=== PATIENT | female | born 1965 | race Caucasian/White ===

== ENCOUNTER 2016-11-10 18:32 | Emergency (ER) | payer MEDICARE, OTHER ==
[2016-11-10 18:49] VITALS: RESP 16
[2016-11-10] MEDS ORDERED: HYDROmorphone 1 MG/ML 1 ML SYRINGE IM STA (21:12)
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
[2016-11-10 21:31] VITALS: BP 134/82; PULSE 58; TEMP 97.4
== END 2016-11-10 21:35 | disposition home or self-care (01) ==
LOC: EC 18:32
DX: G44.329 Chronic post-traumatic headache, not intractable (principal); G40.909 Epilepsy, unspecified, not intractable, without status epilepticus; K21.9 Gastro-esophageal reflux disease without esophagitis; K58.9 Irritable bowel syndrome, unspecified; F41.9 Anxiety disorder, unspecified; F32.9 Major depressive disorder, single episode, unspecified; F17.200 Nicotine dependence, unspecified, uncomplicated; Z79.899 Other long term (current) drug therapy; Z79.891 Long term (current) use of opiate analgesic
CPT/HCPCS: 96372 ×2; 99283 ×2; J1170

== ENCOUNTER → 2017-07-23 | Outpatient (CLI) | payer MEDICARE, OTHER ==
--- NOTE | 2017-07-27 09:56 | MM ---
Reason for exam: screening (asymptomatic). Last mammogram was performed 2 years and 2 months ago. Physical Findings: A clinical breast exam by your physician is recommended on an annual basis and results should be correlated with mammographic findings. MG Screening Mammo w CAD Bilateral CC and MLO view(s) were taken. Prior study comparison: May 22, 2015, bilateral MG diagnostic mammo w CAD ROSALIO. November 01, 2014, left breast MG diagnostic mammo LT w CAD. The breast tissue is heterogeneously dense. This may lower the sensitivity of mammography. Finding: There are questionable faint grouped/clustered calcifications in the upper outer quadrant of the right breast. New finding since November 01, 2014. ASSESSMENT: Incomplete: need additional imaging evaluation, BI-RAD 0 RECOMMENDATION: Special view mammogram of the right breast. [facility] will attempt to contact patient to return for supplemental views.
== END | disposition home or self-care (01) ==
LOC: RADMAMWWP 15:44
PROVIDERS: ATTEND Family Medicine
DX: Z12.31 Encounter for screening mammogram for malignant neoplasm of breast (principal)

== ENCOUNTER → 2017-12-14 | Outpatient (CLI) | payer MEDICARE, OTHER ==
--- NOTE | 2017-12-14 15:48 | MR ---
EXAMINATION TYPE: MR cervical spine wo con DATE OF EXAM: 12/14/2017 COMPARISON: Prior MR cervical spine 02/06/2015 HISTORY: headaches, neck pain TECHNIQUE: Multiplanar, multisequence images of the cervical spine were acquired. C2-C3: No evidence for degenerative disc disease. No disc bulge/herniation or protrusion. No Canal stenosis. Foramina are patent bilaterally. C3-C4: There is broad-based posterior disc bulge causing possible contact with the anterior cervical cord. No significant spinal stenosis or foraminal encroachment. C4-C5: Left posterior paracentral disc herniation causes mass effect on the cervical cord, there is m oderate central canal stenosis extending paracentral location on the left, there may be some mild for aminal encroachment due to lateral extension of endplate disc complex. Findings are similar to prior exam. C5-C6: Posterior extension of endplate disc complex is similar to prior exam, there is likely contact ing the anterior cervical or. Mild central canal stenosis, no significant foraminal encroachment. C6-C7: No evidence for degenerative disc disease. No disc bulge/herniation or protrusion. No Canal stenosis. Foramina are patent bilaterally. C7-T1: No evidence for degenerative disc disease. No disc bulge/herniation or protrusion. No Canal stenosis. Foramina are patent bilaterally. Cervical segments are intact. There is normal alignment. Cervical spinal cord is of normal signal. Craniovertebral junction relationships are within normal limits. Question an underlying spinal curv ature. Loss of disc height and signal present at the intervertebral levels especially C3-4, C4-5 and C5-6. Some minimal endplate discogenic marrow signal change, spondylosis present. IMPRESSION: Findings are similar to prior exam. Disc herniation, spinal stenosis greatest at C4-5 mass effect on the cervical cord.
== END | disposition home or self-care (01) ==
LOC: RADMRIMAIN 12:21
PROVIDERS: ATTEND Family Medicine
DX: M48.02 Spinal stenosis, cervical region (principal); M50.21 Other cervical disc displacement, high cervical region
CPT/HCPCS: 72141

== ENCOUNTER → 2018-02-10 | Outpatient (CLI) | payer MEDICARE, OTHER ==
--- NOTE | 2018-02-12 08:48 | MM ---
Reason for exam: follow-up at short interval from prior study. Last mammogram was performed 6 months ago. Physical Findings: Nurse did not find any significant physical abnormalities on exam. MG Diagnostic Mammo RT w CAD CC and MLO view(s) were taken of the right breast. Prior study comparison: August 10, 2017, right breast MG work up mamm w CAD RT. July 23, 2017, bilateral MG screening mammo w CAD. The breast tissue is extremely dense which could obscure a lesion on mammography. Finding: There are indeterminate calcifications in the upper outer quadrant of the right breast. These results were verbally communicated with the patient and result sheet given to the patient on 02/10/18. ASSESSMENT: Suspicious, BI-RAD 4 RECOMMENDATION: Surgical consultation of the right breast. Stereotactic core biopsy of the right breast. (or) Localization and excision of the right breast. Called Dr. Steen's office with mammographic findings and has scheduled an appointment for the patient for03/04/18 at 2:[address] Jade. PRELIMINARY REPORT CALLED AND FAXED TO DR. JADE ON 02/10/18.
== END | disposition home or self-care (01) ==
LOC: RADMAMWWP 12:53
PROVIDERS: ATTEND Family Medicine
DX: R92.8 Other abnormal and inconclusive findings on diagnostic imaging of breast (principal)
CPT/HCPCS: 77065

== ENCOUNTER → 2018-03-04 | Day surgery (SDC) | payer MEDICARE, OTHER ==
[2018-03-04 10:04] VITALS: BP 104/69; PULSE 85; RESP 16; TEMP 98.4; BMI 39.1
--- NOTE | 2018-03-04 12:30 | MM ---
EXAMINATION TYPE: MG discontinued stereo core RT DATE OF EXAM: 03/04/2018 COMPARISON: Mammogram February 10, 2018 and older studies. CLINICAL HISTORY: Abnormal mammogram TECHNIQUE: Canceled Stereotactic guided core biopsy of right breast. FINDINGS: The procedure of stereotactic guided core biopsy was explained to the patient. Benefits, a lternatives, and risks were discussed. An informed consent was then obtained. Case is reviewed prior to procedure. There are vague calcifications upper outer quadrant on backgroun d of dense tissue. No significant change from most recent mammogram. Patient placed on stereotactic table. No suspicious cluster of microcalcifications could be localized to warrant sampling at this time. Patient also compressed to make not candidate for stereotactic arie ded core biopsy. At this point procedure was canceled. Patient was agreeable to cancellation of biopsy and precautionary 6 month follow-up. IMPRESSION: UNSUCCESSFUL CANCELED STEREOTACTIC GUIDED CORE BIOPSY OF AREA OF CONCERN IN THE RIGHT BREAST. BI-RADS 3 PROBABLE BENIGN FINDINGS. RECOMMENDATION: PATIENT WILL BE DUE IN 5 MONTHS TIME FOR BILATERAL BREAST MAMMOGRAM TO BE BACK ON SILAS UAL SCHEDULE. ADVISE DIAGNOSTIC IMAGING AT THAT TIME.
== END ==
LOC: RADMAMWWP 09:50 → EEVIPCON 09:50
PROVIDERS: ATTEND Family Medicine
DX: R92.1 Mammographic calcification found on diagnostic imaging of breast (principal); Z53.8 Procedure and treatment not carried out for other reasons

== ENCOUNTER → 2018-03-11 | Outpatient (CLI) | payer MEDICARE, OTHER ==
[2018-03-11 11:23] VITALS: BP 130/70; PULSE 70; RESP 20; TEMP 97; BMI 16.0
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
== END | disposition home or self-care (01) ==
LOC: EEVIPCON 10:20 → WWCWWP 10:49
PROVIDERS: ATTEND Surgery
DX: R92.8 Other abnormal and inconclusive findings on diagnostic imaging of breast (principal); Z53.9 Procedure and treatment not carried out, unspecified reason

== ENCOUNTER → 2018-08-16 | Outpatient (CLI) | payer MEDICARE, OTHER ==
--- NOTE | 2018-08-16 11:23 | MM ---
Reason for exam: follow-up at short interval from prior study. Last mammogram was performed 6 months ago. History: MG discontinued stereo core RT of the right breast, March 04, 2018. Physical Findings: Nurse did not find any significant physical abnormalities on exam. MG Diagnostic Mammo w CAD ROSALIO Bilateral CC and MLO view(s) were taken. Prior study comparison: February 10, 2018, right breast MG diagnostic mammo RT w CAD. August 10, 2017, right breast MG work up mamm w CAD RT. The breast tissue is heterogeneously dense. This may lower the sensitivity of mammography. No suspicious calcifications are seen. There is no discrete abnormality. No significant new findings when compared with previous films. These results were verbally communicated with the patient and result sheet given to the patient on 08/16/18. ASSESSMENT: Negative, BI-RAD 1 RECOMMENDATION: Routine screening mammogram of both breasts in 1 year.
== END | disposition home or self-care (01) ==
LOC: RADMAMWWP 10:49
PROVIDERS: ATTEND Surgery
DX: R92.8 Other abnormal and inconclusive findings on diagnostic imaging of breast (principal)
CPT/HCPCS: 77066

== ENCOUNTER → 2018-08-26 | Outpatient (CLI) | payer MEDICARE, OTHER ==
[2018-08-26 11:13] VITALS: BP 116/76; PULSE 69; RESP 16; TEMP 97.4; BMI 33.8
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
== END | disposition home or self-care (01) ==
LOC: WWCWWP 10:44
PROVIDERS: ATTEND Surgery
DX: Z53.9 Procedure and treatment not carried out, unspecified reason (principal)

== ENCOUNTER 2018-09-28 06:52 | Day surgery (SDC) | payer MEDICARE, OTHER ==
[2018-09-27 13:42] VITALS: BMI 31.1
[~2018-09-28 06:52] MED LIST: DEXAMETHASONE SOD PHOSPHATE 10 MG/ML 1 ML VIAL IV ONE; HEPARIN SODIUM,PORCINE 5,000 UNIT/ML 1 ML VIAL SQ ONE; HYDROmorphone 1 MG/ML 1 ML SYRINGE IVP PRN; LIDOCAINE 1% 20 ML VIAL (10MG/ML) FOR IV START INTRADERMA PRN; MIDAZOLAM 2 MG/2 ML VIAL IV PRN; ONDANSETRON 4 MG/2 ML VIAL IVP ONE; Pre Op ABX Message 1 EACH MISC MISCELLANE ONE; fentaNYL (PF) 50 MCG/ML 2 ML AMP IV PRN
[2018-09-28] MEDS: LACTATED RINGERS 1,000 ML IV SCH ×2 (07:26→09:28)
[2018-09-28] MEDS ORDERED: ALPRAZolam 0.5 MG TAB PO ONE (07:51)
[2018-09-28] MEDS ORDERED: LIDOCAINE 1% INJ 10MG/ML (20 ML MDV) SQ ONE ×2 (09:21)
[2018-09-28] MEDS ORDERED: LIDOCAINE 1%-EPI 1:100,000 20 ML VIAL SQ ONE (09:29)
[2018-09-28] MEDS ORDERED: MIDAZOLAM 2 MG/2 ML VIAL ONE (09:30)
[2018-09-28] MEDS ORDERED: SUCCINYLCHOLINE CHLORIDE 100 MG/5 ML SYR IV ONE (09:30)
[2018-09-28] MEDS ORDERED: LIDOCAINE 1% INJ 10MG/ML (20 ML MDV) ONE (09:30)
[2018-09-28] MEDS ORDERED: PROPOFOL 10 MG/ML 20 ML VIAL IV ONE (09:30)
[2018-09-28] MEDS ORDERED: SODIUM BICARB 4% 5 ML VIAL (0.48 MEQ/ML) MISCELLANE ONE (09:31)
[2018-09-28] MEDS ORDERED: HEPARIN SODIUM,PORCINE 5,000 UNIT/ML 1 ML VIAL SQ ONE (09:38)
--- NOTE | 2018-09-28 10:21 | P.OP ---
Date of Procedure: 09/28/18 Preoperative Diagnosis: Mammographic abnormality right breast Postoperative Diagnosis: Same Procedure(s) Performed: Right breast needle localization and excisional biopsy Anesthesia: LANE Surgeon: Larissa Jade Estimated Blood Loss (ml): 2 IV fluids (ml): 400 Pathology: other (Breast tissue) Condition: stable Disposition: same day Indications for Procedure: Radiographic abnormality right breast Operative Findings: Dense breast tissue Description of Procedure: Following needle localization of an area of increased density in the right breast the patient was taken to the operating room. Following induction of general anesthesia the right breast was prepped and draped in a sterile fashion. Circumareolar incision was made and carried down to the shaft of the needle. Wide excision of the area was performed. Hemostasis was attained using electrocautery device. The deep tissues were closed using 3-0 Vicryl suture. The skin was closed using 4-0 Monocryl. The specimen was painted for orientation. The specimen was sent for radiographic confirmation that the area of concern about removed. The patient tolerated the procedure in stable condition. All instrument and sponge counts were correct at the end of the case.
--- NOTE | 2018-09-28 10:23 | P.DS ---
Providers Attending physician: Larissa Jade Primary care physician: Vitaliy Steen Plan - Discharge Summary New Discharge Prescriptions: No Action Omeprazole [PriLOSEC] 20 mg PO BID Docusate [Colace] 100 mg PO HS Loratadine [Claritin] 20 mg PO 1200 levETIRAcetam [Keppra] 1,000 mg PO QAM DULoxetine HCL [Cymbalta] 60 mg PO BID traZODone HCL [Desyrel] 50 mg PO HS Butalb/Acetaminophen/Caffeine [Njvpdl-Kstwhxqr-Ibof 50-325-40] 1 tab PO BID Baclofen 10 mg PO TID ARIPiprazole [Abilify] 5 mg PO QAM oxyCODONE HCL 20 mg PO DAILY@1200 PRN PRN Reason: Breakthrough Pain oxyCODONE HCL [OxyCONTIN] 30 mg PO Q12H Discharge Medication List DULoxetine HCL [Cymbalta] 60 mg PO BID 03/03/14 [History] Docusate [Colace] 100 mg PO HS 03/03/14 [History] Loratadine [Claritin] 20 mg PO 1200 03/03/14 [History] Omeprazole [PriLOSEC] 20 mg PO BID 03/03/14 [History] levETIRAcetam [Keppra] 1,000 mg PO QAM 03/03/14 [History] Butalb/Acetaminophen/Caffeine [Wkrgir-Neokdpgt-Nldi 50-325-40] 1 tab PO BID 06/03 [History] traZODone HCL [Desyrel] 50 mg PO HS 03/26/16 [History] ARIPiprazole [Abilify] 5 mg PO QAM 11/10/16 [History] Baclofen 10 mg PO TID 11/10/16 [History] oxyCODONE HCL 20 mg PO DAILY@1200 PRN 11/10/16 [History] oxyCODONE HCL [OxyCONTIN] 30 mg PO Q12H 11/10/16 [History] Follow up Appointment(s)/Referral(s): Larissa Jade MD [STAFF PHYSICIAN] - 1 Week Activity/Diet/Wound Care/Special Instructions: Patient may shower after 48 hours Discharge Disposition: HOME SELF-CARE
[2018-09-28 10:41] VITALS: TEMP 97.7
[2018-09-28 10:58] VITALS: RESP 18
--- NOTE | 2018-09-28 11:03 | MM ---
EXAMINATION TYPE: MG pre op needle loc RT, MG surgical specimen RT DATE OF EXAM: 09/28/2018 COMPARISON: Mammogram August 16, 2018 and older mammograms. CLINICAL HISTORY: Abnormal mammogram per order. TECHNIQUE: Needle localization with wire placement and surgical excision of area of concern in the ri t breast. FINDINGS: The procedure of needle localization with wire placement and than surgical excision was exp lained to the patient. Benefits, alternatives, and risks were discussed. An informed consent was th en obtained. Case was reviewed with surgeon prior to procedure. Patient has extremely dense tissue with possible f aint calcifications upper outer quadrant, attempted stereotactic biopsy was unsuccessful. Possible fa int calcifications are not significantly changed from 2015 mammogram. Surgeon wishes to proceed with excisional biopsy due to her concern of the upper outer aspect. The shortest pathway for procedure was chosen. Shortest pathway was lateral approach. The overlying skin was prepped and draped in usual sterile fashion. Lidocaine buffered with bicarbonate was used a s anesthetic into the skin and subcutaneous tissue up to the level of area of concern. A 5 cm needle was used. It was placed via a lateral approach under mammographic guidance. Subsequent 90 degrees mammogram show the needle to be in satisfactory position relative to the targeted area. At this poin t, wire was placed and the needle was withdrawn. The wire was fixed to patient's skin. Images were marked for surgeon. The patient tolerated the procedure well without any immediate complication. The patient was kept in the radiology department for short stay after the procedure and then taken to surgery for surgical e xcision. Targeted wire is identified in entirety in specimen mammogram. The patient was kept in hosp ital for short stay after the procedure and then discharged home in stable condition. IMPRESSION: Successful, uncomplicated needle localization with wire placement and surgical excision o f extremely dense tissue upper-outer quadrant with possible faint calcifications in the right breast, full pathology results to follow. Low to intermediate index of suspicion noted at time of procedure.
[2018-09-28 11:24] VITALS: PULSE 80
[2018-09-28 11:47] VITALS: BP 93/62
== END 2018-09-28 12:20 | disposition home or self-care (01) ==
LOC: OR 06:52
PROVIDERS: ATTEND Surgery
DX: R92.1 Mammographic calcification found on diagnostic imaging of breast (principal); N60.11 Diffuse cystic mastopathy of right breast; N60.21 Fibroadenosis of right breast; F17.210 Nicotine dependence, cigarettes, uncomplicated; J45.909 Unspecified asthma, uncomplicated; K21.9 Gastro-esophageal reflux disease without esophagitis; G40.909 Epilepsy, unspecified, not intractable, without status epilepticus; R41.3 Other amnesia; K58.1 Irritable bowel syndrome with constipation; G89.29 Other chronic pain; M54.9 Dorsalgia, unspecified; F41.9 Anxiety disorder, unspecified; F32.9 Major depressive disorder, single episode, unspecified; Z90.710 Acquired absence of both cervix and uterus; Z86.14 Personal history of Methicillin resistant Staphylococcus aureus infection; Z79.891 Long term (current) use of opiate analgesic; Z79.899 Other long term (current) drug therapy
CPT/HCPCS: 77065; 19125; 88307; 76098; 19281; J2250; J1644; J1100; J2405; J2001; J0330; J2704

== ENCOUNTER → 2018-10-07 | Outpatient (CLI) | payer MEDICARE, OTHER ==
[2018-10-07 12:02] VITALS: BP 115/75; PULSE 60; RESP 18; TEMP 98.1; BMI 18.0
--- NOTE | 2018-10-07 12:19 | P.PN ---
Progress Note - Text Progress Note Date: 10/07/18 Patient is a 52-year-old white female status post right breast biopsy. Pathology revealed benign fibrocystic changes including sclerosing adenosis with numerous cluster calcifications. Patient has no complaints at this time. Physical examination: Lungs: Clear Heart: Regular rate and rhythm Incision clean and dry Impression: 1. Fibrocystic breast changes right breast Plan: 1. Repeat right breast mammogram and physician exam in 6 months Cc: Dr. Steen
== END | disposition home or self-care (01) ==
LOC: WWCWWP 11:31
PROVIDERS: ATTEND Surgery
DX: Z53.9 Procedure and treatment not carried out, unspecified reason (principal)

== ENCOUNTER → 2019-05-12 | Outpatient (CLI) | payer MEDICARE, OTHER ==
--- NOTE | 2019-05-12 11:33 | MM ---
Reason for exam: follow-up at short interval from prior study. Last mammogram was performed 9 months ago. History: Benign MG pre op needle loc RT of the right breast, September 28, 2018. MG discontinued stereo core RT of the right breast, March 04, 2018. Physical Findings: Nurse did not find any significant physical abnormalities on exam. MG Diagnostic Mammo RT w CAD CC and MLO view(s) were taken of the right breast. Prior study comparison: August 16, 2018, bilateral MG diagnostic mammo w CAD ROSALIO. February 10, 2018, right breast MG diagnostic mammo RT w CAD. The breast tissue is heterogeneously dense. This may lower the sensitivity of mammography. No suspicious abnormality. Post surgical change on the right. These results were verbally communicated with the patient and result sheet given to the patient on 05/12/19. ASSESSMENT: Benign, BI-RAD 2 RECOMMENDATION: Routine screening mammogram of both breasts in 3 months. Back on schedule for July 2019.
== END | disposition home or self-care (01) ==
LOC: RADMAMWWP 10:47
PROVIDERS: ATTEND Surgery
DX: R92.8 Other abnormal and inconclusive findings on diagnostic imaging of breast (principal)
CPT/HCPCS: 77065

== ENCOUNTER → 2019-05-13 | Outpatient (CLI) | payer MEDICARE, OTHER ==
[2019-05-13 11:16] VITALS: BP 116/76; PULSE 72; RESP 16; TEMP 98.8; BMI 16.7
--- NOTE | 2019-05-13 11:28 | P.PN ---
Subjective Progress Note Date: 05/13/19 Guerline is a 52-year-old white female who had a abnormal mammogram in January 2018. This revealed indeterminate calcifications in the upper quadrant of the right breast. There were considered suspicious BIRADS 4. At that time an attempt at stereo biopsy was made. The lesion was not well identified it was recommended she have repeat mammogram of that side in 5 months. She did have bilateral mammogram in July 2018. Although this was felt to be negative initially upon review with radiology the area of microcalcifications in the right breast persisted. Her breasts are very small and as per the radiologist it was felt that she would not be a good candidate for stereotactic biopsy. It was recommended she undergo needle localization and excisional biopsy. Not reporting any masses or changes in her breasts. She denied any nipple discharge or skin changes of concern. She underwent a needle localization and resection of the area of concern on 09-28-18. This was benign. She does not feel any lumps or masses in her breasts. Her most recent mammogram was of the right breast on . This was a benign BIRADS 2. It is recommended for routine screening of both breast in 3 months. After discussion with the patient she does not wish to repeat her right mammogram in 3 months and will have the left mammogram done in 3 months, and then bilateral mammogram in 1 year. Family History: unknown Past surgical history: Total hysterectomy Past medical history: 1. Closed head injury secondary to trauma many years ago care provider was present 2. Asthma 3. Seizure disorder 4. Nicotine dependence 5. Low back pain Pregnancies 2, 2 children Social history: Smokes half pack per day Alcohol: Negative Drugs: Negative - Constitutional Constitutional: Reports as per HPI - EENT Eyes: denies blurred vision, denies pain Ears: deny: decreased hearing, tinnitus Ears, nose, mouth and throat: Denies headache, Denies sore throat - Breasts Breasts: bilateral: as per HPI - Cardiovascular Cardiovascular: Denies chest pain, Denies shortness of breath - Respiratory Respiratory: Denies cough, Denies 7 - Gastrointestinal Gastrointestinal: Denies abdominal pain, Denies diarrhea, Denies nausea, Denies vomiting, - Genitourinary (Female) Genitourinary: Denies dysuria, Denies hematuria - Menstruation Menstruation: Reports post hysterectomy - Neurological Comment: Status post closed head injury - Hematologic/Lymphatic Comment: none Musculoskeletal: Lower back pain Past Medical History Past Medical History: Asthma, GERD/Reflux, Memory Impairment, Seizure Disorder Additional Past Medical History / Comment(s): HX CLOSED HEAD INJ, IN A COMA years ago pt states; BLOOD PRESSURE RUNS LOW; ; CHRONIC BACK PAIN; POOR BANANCE NOW, pt states she last seizure was months ago History of Any Multi-Drug Resistant Organisms: MRSA Date of last positivie culture/infection: 06/15/2007 MDRO Source:: Left Axilla Past Surgical History: Hysterectomy Additional Past Surgical History / Comment(s): PAIN PROC, LAST 02/08/14 Past Anesthesia/Blood Transfusion Reactions: No Reported Reaction Past Psychological History: Anxiety, Depression Smoking Status: Current every day smoker Past Alcohol Use History: None Reported Past Drug Use History: Marijuana Additional Drug Use History / Comment(s): pt states she hasnt used marijuana in months. Objective - Vital Signs Vital signs: Intake & Output 05/12/19 05/13/19 05/13/19 18:59 06:59 18:59 Weight 48.534 kg - Exam BMI 16.8 - Constitutional General appearance: Present: thin - EENT Eyes: Present: EOMI ENT: Present: hearing grossly normal - Neck Neck: Present: normal ROM - Respiratory Details: Expiratory wheezes bilaterally at the bases - Cardiovascular Rhythm: regular Heart sounds: normal: S1, S2 - Gastrointestinal General gastrointestinal: Present: soft - Integumentary Integumentary: Present: normal turgor - Musculoskeletal Musculoskeletal: Present: gait normal - Psychiatric Psychiatric: Present: A&O x's 3, appropriate affect, intact judgment & insight - Additional findings Additional findings: Breast examination: Right breast: 100 scar from prior biopsy no dominant masses or nodules of concern, fibrocystic changes Right axilla: No adenopathy of concern left breast: Multiple positional exam no dominant masses or nodules of concern Left axilla: No adenopathy of concern Assessment and Plan Assessment: Impression: 1. [place] [id number] benign BIRADS 2 of the right breast 2. Fibrocystic breast changes 3. Closed head injury 4. Patient to the left breast mammogram in 3 months 5. Low back pain 6. Asthma 7. Seizure disorder Plan: 1. Left breast mammogram July with physician exam at that time 2. Will have repeat bilateral mammogram that 1 year 3. Medical management of medical conditions Cc: Dr. Steen
== END | disposition home or self-care (01) ==
LOC: WWCWWP 10:47
PROVIDERS: ATTEND Surgery
DX: Z53.9 Procedure and treatment not carried out, unspecified reason (principal)

== ENCOUNTER 2019-06-07 20:40 | Emergency (ER) | payer MEDICARE, OTHER ==
[2019-06-07 20:48] VITALS: PULSE 95; RESP 16; TEMP 98
--- NOTE | 2019-06-07 22:02 | CT ---
EXAMINATION TYPE: CT brain cspine wo con DATE OF EXAM: 06/07/2019 COMPARISON: 01/17/2015 CT HISTORY: Fall, ETOH. CT DLP: 1160 mGycm Automated exposure control for dose reduction was used. TECHNIQUE: CT scan of the head and cervical spine are performed without contrast. FINDINGS: HEAD CT: The previously seen left temporoparietal occipital encephalomalacia pattern is similar when compared to the 01/17/2015 CT. There is no gall fracture or intracranial hemorrhage, mass, or mass eff ect. No definite new attenuation defect. The extra-axial compartment is similar when compared to the prior study. The globes are intact and the visualized sinuses are clear. INCIDENTALS: 1) It is noted that the left maxillary sinus is approximately 85% opacified, which can correlate with a clinical diagnosis of left maxillary sinusitis; this left maxillary sinus was clear on the prior s tudy. 2) Also, it is noted that the left external auditory canal has excessive cerumen within, but the rig ht external auditory canal is clear. CERVICAL SPINE CT: The cervical spine is visualized in its entirety from C1 through upper thoracic le vels and demonstrates satisfactory alignment without evidence of acute fracture or dislocation. Prev ertebral soft tissue appears within normal limits. The C1-C2 articulation is unremarkable. IMPRESSION: 1. There is no acute fracture or dislocation evident in the cervical spine. 2. No acute intracranial hemorrhage, mass effect, or midline shift is seen.
--- NOTE | 2019-06-07 22:21 | ED ---
Fall HPI - General Chief Complaint: Fall Stated Complaint: Fall, ETOH Time Seen by Provider: 06/07/19 20:56 Source: patient, EMS Mode of arrival: EMS - History of Present Illness Initial Comments: 53-year-old female patient presents to the emergency department today for evaluation after experiencing a fall. Patient states she is walking up a wheelchair ramp when she fell backwards. Patient is unsure she had her head. She is reporting some neck pain. States she does have chronic neck pain and this feels similar but she is unsure she injured it or not. Denies radiation of the pain down her arms. Denies any numbness or tingling to her arms or fingers. She denies any back pain, hip pain, or leg pain. Denies any chest pain or trouble breathing. Denies any loss of bowel or bladder control. She does admit to drinking alcohol and smoking marijuana tonight. Patient denies any headache, dizziness, weakness, abdominal pain, nausea, vomiting, or difficulties with bowel movements or urination. - Related Data Home Medications Medication Instructions Recorded Confirmed DULoxetine HCL [Cymbalta] 60 mg PO BID 03/03/14 06/07/19 Docusate [Colace] 100 mg PO HS 03/03/14 06/07/19 Loratadine [Claritin] 10 mg PO DAILY 03/03/14 06/07/19 levETIRAcetam [Keppra] 1,000 mg PO QAM 03/03/14 06/07/19 Butalb/Acetaminophen/Caffeine 1 tab PO BID 03/26/16 06/07/19 [[id number]-[id number]-Mywe 50-325-40] traZODone HCL [Desyrel] 100 mg PO HS 03/26/16 06/07/19 ARIPiprazole [Abilify] 5 mg PO QAM 11/10/16 06/07/19 Baclofen 10 mg PO HS 11/10/16 06/07/19 oxyCODONE HCL [OxyCONTIN] 30 mg PO Q12H 11/10/16 06/07/19 oxyCODONE HCL [oxyCODONE HCL (IR)] 20 mg PO DAILY@1200 PRN 11/10/16 06/07/19 Clotrimazole Cream [Lotrimin Cream] 1 applic TOPICAL DAILY 06/07/19 06/07/19 Pantoprazole [Protonix] 40 mg PO DAILY 06/07/19 06/07/19 busPIRone HCl [Buspar] 5 mg PO TID 06/07/19 06/07/19 rOPINIRole HCL [Requip] 0.5 mg PO DAILY 06/07/19 06/07/19 Allergies Allergy/AdvReac Type Severity Reaction Status Date / Time No Known Allergies Allergy Verified 06/07/19 20:56 Review of Systems ROS Statement: Those systems with pertinent positive or pertinent negative responses have been documented in the HPI. ROS Other: All systems not noted in ROS Statement are negative. Past Medical History Past Medical History: Asthma, GERD/Reflux, Memory Impairment, Seizure Disorder Additional Past Medical History / Comment(s): HX CLOSED HEAD INJ, IN A COMA years ago pt states; BLOOD PRESSURE RUNS LOW; IBS/CONSTIPATION; CHRONIC BACK PAIN; POOR BALANCE History of Any Multi-Drug Resistant Organisms: MRSA Date of last positivie culture/infection: 06/15/2007 MDRO Source:: Left Axilla Past Surgical History: Hysterectomy Additional Past Surgical History / Comment(s): PAIN PROCs Past Anesthesia/Blood Transfusion Reactions: No Reported Reaction Additional Past Anesthesia/Blood Transfusion Reaction / Comment(s): no hx blood transfusion Past Psychological History: Anxiety, Depression Smoking Status: Current every day smoker Past Alcohol Use History: Daily Past Drug Use History: Marijuana - Past Family History Mother Family Medical History: Cancer General Exam Limitations: altered mental status General appearance: alert, in no apparent distress, appears intoxicated, other (This is a well-developed, well-nourished, intoxicated adult female patient in no acute distress. Vital signs upon presentation are temperature 98.0F, pulse 95, respirations 16, blood pressure 101/70, pulse ox 100% on room air.) Head exam: Present: atraumatic, normocephalic, normal inspection Eye exam: Present: normal appearance, PERRL, EOMI. Absent: scleral icterus, conjunctival injection, periorbital swelling ENT exam: Present: normal exam, normal oropharynx, mucous membranes moist, TM's normal bilaterally (No hemotympanum) Neck exam: Present: normal inspection, tenderness (Posterior cervical tender ness). Absent: meningismus, full ROM (C-collar in place), lymphadenopathy Respiratory exam: Present: normal lung sounds bilaterally. Absent: respiratory distress, wheezes, rales, rhonchi, stridor Cardiovascular Exam: Present: regular rate, normal rhythm, normal heart sounds. Absent: systolic murmur, diastolic murmur, rubs, gallop, clicks GI/Abdominal exam: Present: soft, normal bowel sounds. Absent: distended, tenderness, guarding, rebound, rigid Extremities exam: Present: normal inspection, full ROM, normal capillary refill, other (Skin to the extremities is pink, warm, dry. Cap refills less than 3 seconds. Radial pulses 2+ and equal bilaterally. Pedal posttibial pulses 2+ and equal bilaterally.). Absent: tenderness, pedal edema, joint swelling, calf tenderness Back exam: Present: normal inspection, other (Nontender, no step-off, no deformity to firm midline palpation of the thoracic and lumbar vertebrae. Full range of motion without pain or limitation.). Absent: vertebral tenderness Neurological exam: Present: alert, oriented X3, CN II-XII intact, other (Strength in all 4 extremities is 5/5.) Psychiatric exam: Present: normal affect, normal mood Skin exam: Present: warm, dry, intact, normal color. Absent: rash Course Vital Signs 06/07/19 06/07/19 20:42 22:57 Temperature 98.0 F 98.0 F Pulse Rate 95 95 Respiratory 16 16 Rate Blood Pressure 101/70 112/71 O2 Sat by Pulse 100 100 Oximetry Medical Decision Making - Medical Decision Making 53-year-old female patient presents to the emergency department today for evaluation after experiencing a fall. Patient is reporting neck pain. C-collar is in place. She is neurovascularly and neurologically intact. She denies headache. CT brain C-spine were obtained and showed no acute upper mouth use. C-collar was removed, patient had full range of motion of the neck without pain or limitation. Patient will be discharged into care of her legal guardian. She is instructed to follow-up with her primary care physician for recheck in 1-2 days. Return parameters were discussed in detail. She verbalizes understanding and agrees with this plan. - Radiology Data Radiology results: report reviewed, image reviewed CT brain and C-spine without contrast was obtained. Report was reviewed in its entirety. Impression by Dr. Johnny Burgess shows no acute fracture dislocation evident in the cervical spine. No acute intracranial hemorrhage, mass effect, or midline shift is seen. Disposition Clinical Impression: Fall, Cervical strain Disposition: HOME SELF-CARE Condition: Good Instructions (If sedation given, give patient instructions): Cervical Strain (ED), Fall Prevention (ED) Additional Instructions: Take Tylenol and Motrin for pain control. Follow-up with your primary care physician for recheck in 1-2 days. Return to the emergency department immediately for any new, worsening, or concerning symptoms. Is patient prescribed a controlled substance at d/c from ED?: No Referrals: Vitaliy Steen DO [Primary Care Provider] - 1-2 days Time of Disposition: 22:21
[2019-06-07 22:58] VITALS: BP 112/71
== END 2019-06-07 22:57 | disposition home or self-care (01) ==
LOC: EC 20:40
DX: S16.1XXA Strain of muscle, fascia and tendon at neck level, initial encounter (principal); F10.129 Alcohol abuse with intoxication, unspecified; K21.9 Gastro-esophageal reflux disease without esophagitis; G40.909 Epilepsy, unspecified, not intractable, without status epilepticus; G89.29 Other chronic pain; K59.00 Constipation, unspecified; F32.9 Major depressive disorder, single episode, unspecified; F41.9 Anxiety disorder, unspecified; F17.200 Nicotine dependence, unspecified, uncomplicated; Z79.899 Other long term (current) drug therapy; Z79.891 Long term (current) use of opiate analgesic; Z86.14 Personal history of Methicillin resistant Staphylococcus aureus infection; W01.0XXA Fall on same level from slipping, tripping and stumbling without subsequent striking against object, initial encounter; Y93.01 Activity, walking, marching and hiking; Y92.009 Unspecified place in unspecified non-institutional (private) residence as the place of occurrence of the external cause
CPT/HCPCS: 70450; 72125; 82075; 99284

== ENCOUNTER → 2019-09-07 | Outpatient (CLI) | payer MEDICARE, OTHER ==
--- NOTE | 2019-09-07 13:59 | MM ---
Reason for exam: follow-up at short interval from prior study. Last mammogram was performed 4 months ago. History: Benign MG pre op needle loc RT of the right breast, September 28, 2018. MG discontinued stereo core RT of the right breast, March 04, 2018. Physical Findings: Nurse did not find any significant physical abnormalities on exam. MG Diagnostic Mammo w CAD ROSALIO Bilateral CC and MLO view(s) were taken. Prior study comparison: May 12, 2019, right breast MG diagnostic mammo RT w CAD. August 16, 2018, bilateral MG diagnostic mammo w CAD ROSALIO. Benign appearing calcifications in the left breast. Post surgical change on the right. Left medial middle depth asymmetry is similar to 2017 and 2014. These results were verbally communicated with the patient and result sheet given to the patient on 09/07/19. ASSESSMENT: Benign, BI-RAD 2 RECOMMENDATION: Routine screening mammogram of both breasts in 1 year.
== END | disposition home or self-care (01) ==
LOC: RADMAMWWP 12:48
PROVIDERS: ATTEND Surgery
DX: R92.8 Other abnormal and inconclusive findings on diagnostic imaging of breast (principal)
CPT/HCPCS: 77066

== ENCOUNTER → 2019-09-22 | Outpatient (CLI) | payer MEDICARE, OTHER | END | disposition home or self-care (01) | LOC: WWCWWP 11:40 | PROVIDERS: ATTEND Surgery | DX: Z53.9 Procedure and treatment not carried out, unspecified reason (principal) ==

== ENCOUNTER → 2019-10-28 | Outpatient (CLI) | payer MEDICARE, OTHER ==
[2019-10-28 13:18] VITALS: BP 114/76; PULSE 75; RESP 18; TEMP 98
--- NOTE | 2019-10-28 13:39 | P.PN ---
Subjective Progress Note Date: 10/28/19 Principal diagnosis: Fibrocystic breast changes status post open biopsy 10/05 Guerline is a 53-year-old white female who presents for breast evaluation. She is status post right breast needle localization and excisional biopsy in September 2018. Pathology revealed fibrocystic changes. The patient at this time has no complaints. She is not complaining of any breast pain. She is not complaining of any nipple discharge or skin changes. A high lateral mammogram was performed in August 2019 which was benign BIRADS 2. Routine screening of both breasts in 1 year is recommended. 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 Social History: smoke: 1/PPD 30 years alcohol: none drugs: none ROS: HEENT: closed head injury, blurred vision no decreased hearing lungs: smoker cardiac: none GI: diahrea : post menopausal muscle: no neuro: closed head injury allergies: seasonal Objective - Vital Signs Vital signs: Vital Signs Temp 98.0 F 10/28/19 13:16 Pulse 75 10/28/19 13:16 Resp 18 10/28/19 13:16 BP 114/76 10/28/19 13:16 Pulse Ox 98 10/28/19 13:16 Intake & Output 10/27/19 10/28/19 10/28/19 18:59 06:59 18:59 Weight 46.72 kg - Exam BMI 16.1 - Constitutional General appearance: Present: thin - EENT Eyes: Present: EOMI ENT: Present: hearing grossly normal - Neck Details: no adenopathy Neck: Present: normal ROM - Respiratory Respiratory: bilateral: diminished - Cardiovascular Rhythm: regular Heart sounds: normal: S1, S2 - Gastrointestinal General gastrointestinal: Present: normal bowel sounds, soft - Integumentary Integumentary: Present: normal turgor - Musculoskeletal Musculoskeletal: Present: gait normal - Psychiatric Psychiatric Comment(s): closed head injury - Additional findings Additional findings: breast exam: Inspection: Well-healed scar right breast periareolar area from prior biopsy Nipples not inverted Palpation: Right breast multiple positional exam no dominant masses or nodules of concern breast very small Right axilla: No adenopathy of concern Left breast: Multi-positional exam no dominant masses or nodules of concern fibrocystic changes breast very small Left axilla: No adenopathy of concern Assessment and Plan Assessment: Impression: 1. fibrocystic breast changes bilateral 2. closed head injury 3. bilateral mammogram BIRAD 2, 09-07-19 4. Nothing noted which would warrant interventional biopsy at of the breast at this time Plan: 1. Follow with Dr. Steen after bilateral mammogram in 1 year 2. Follow up here if any questions or concerns I discussed with the patient and her caregiver that she does not have anything which would warrant biopsy in her breast at this time. The patient has a closed head injury and is somewhat difficult T with understanding. The patient will have a bilateral mammogram in 1 year. If she notes any questions or concerns in her breasts she will call us immediately. Otherwise she can follow with her primary care doctor. Cc: Dr. Steen Encounter: 20 minutes, greater than 50% of time spent in planning and counseling Time with Patient: Less than 30
== END | disposition home or self-care (01) ==
LOC: WWCWWP 12:52
PROVIDERS: ATTEND Surgery
DX: Z53.9 Procedure and treatment not carried out, unspecified reason (principal)

== ENCOUNTER → 2020-07-18 | Outpatient (CLI) | payer MEDICARE, OTHER ==
--- NOTE | 2020-07-18 14:03 | MR ---
EXAMINATION TYPE: MR brain wo/w con DATE OF EXAM: 07/18/2020 COMPARISON: CT brain June 07, 2019 HISTORY: Seizure, CASTANON, memory loss TECHNIQUE: Multiplanar, multisequence images of the brain and brainstem is performed without and with IV contras t, utilizing 5 mL intravenous Gadavist . FINDINGS: Diffusion weighted images demonstrate no evidence of a recent infarct or other diffusion ab normality. There is no worrisome extra-axial fluid collection. Stable ventricular and sulcal promine nce with left-sided asymmetry. Focal areas of encephalomalacia medial left occipital lobe axial image 18 and 2 larger degree left superior temporal lobe axial image 12 are redemonstrated. Asymmetric dil ated left temporal and occipital horns or ex vacuo dilatation redemonstrated. Some areas of T2 hyperi ntensity throughout the periventricular white matter redemonstrated. Midline structures demonstrate normal morphology. The craniocervical junction appears within normal limits. Post contrast images demonstrate no suspicious enhancement. The dural venous sinuses appear patent. The visualized sinuses are clear and the globes are intact. Increased fluid signal bilateral mastoid air cells left greater than right. IMPRESSION: 1. Possible new left greater than right mastoiditis, correlate clinically. Improved left maxillary si nus disease noted. 2. 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 Mild chronic small vessel i schemic change. No significant change from prior CT.
== END | disposition home or self-care (01) ==
LOC: RADMRIMAIN 12:17
PROVIDERS: ATTEND Psychiatry & Neurology Pain Medicine
DX: G31.9 Degenerative disease of nervous system, unspecified (principal); I67.82 Cerebral ischemia; Z86.73 Personal history of transient ischemic attack (TIA), and cerebral infarction without residual deficits
CPT/HCPCS: 70553; A9585

== ENCOUNTER 2021-02-13 03:03 | Emergency (ER) | payer MEDICARE, OTHER ==
[2021-02-13 03:21] VITALS: RESP 18; TEMP 97.6
--- NOTE | 2021-02-13 03:31 | ED ---
Fall HPI - General Chief Complaint: Fall Stated Complaint: ETOH, shoulder injury Time Seen by Provider: 02/13/21 03:25 Source: EMS, RN notes reviewed, old records reviewed Mode of arrival: EMS - History of Present Illness Initial Comments: 5-year-old female DF for evaluation patient presents today for evaluation regards to fall with alcohol intoxication right follows earlier in the night has been severe worsening, difficulty moving left arm. Pain upper arm left shoulder. Again aside from alcohol intoxication patient denies any medical history or problems MD Complaint: fall -: hour(s) Fall From: standing When Fall Occurred: unsure Fall Witnessed: no Place Fall Occurred: home Loss of Consciousness: none Prolonged Down Time?: no Symptoms Prior to Fall: none Location - Extremities: Left: Shoulder Severity: moderate Severity scale (1-10): 7 Quality: burning Context: tripped/slipped Associated Symptoms: denies - Related Data Home Medications Medication Instructions Recorded Confirmed DULoxetine HCL [Cymbalta] 60 mg PO BID 03/03/14 10/28/19 Docusate [Colace] 100 mg PO HS 03/03/14 10/28/19 Loratadine [Claritin] 10 mg PO DAILY 03/03/14 10/28/19 levETIRAcetam [Keppra] 1,000 mg PO QAM 03/03/14 10/28/19 traZODone HCL [Desyrel] 100 mg PO HS 03/26/16 10/28/19 ARIPiprazole [Abilify] 5 mg PO QAM 11/10/16 10/28/19 Baclofen 10 mg PO HS 11/10/16 10/28/19 oxyCODONE HCL [OxyCONTIN] 30 mg PO Q12H 11/10/16 10/28/19 oxyCODONE HCL [oxyCODONE HCL (IR)] 20 mg PO DAILY@1200 PRN 11/10/16 10/28/19 Pantoprazole [Protonix] 40 mg PO DAILY 06/07/19 10/28/19 busPIRone HCl [Buspar] 5 mg PO TID 06/07/19 10/28/19 rOPINIRole HCL [Requip] 0.5 mg PO DAILY 06/07/19 10/28/19 Allergies Allergy/AdvReac Type Severity Reaction Status Date / Time No Known Allergies Allergy Verified 02/13/21 03:21 Review of Systems ROS Statement: Those systems with pertinent positive or pertinent negative responses have been documented in the HPI. ROS Other: All systems not noted in ROS Statement are negative. Past Medical History Past Medical History: Asthma, GERD/Reflux, Memory Impairment, Seizure Disorder Additional Past Medical History / Comment(s): HX CLOSED HEAD INJ, IN A COMA years ago pt states; BLOOD PRESSURE RUNS LOW; IBS/CONSTIPATION; CHRONIC BACK PAIN; POOR BALANCE History of Any Multi-Drug Resistant Organisms: MRSA Date of last positivie culture/infection: 06/15/2007 MDRO Source:: Left Axilla Past Surgical History: Hysterectomy Additional Past Surgical History / Comment(s): PAIN PROCs Past Anesthesia/Blood Transfusion Reactions: No Reported Reaction Additional Past Anesthesia/Blood Transfusion Reaction / Comment(s): no hx blood transfusion Past Psychological History: Anxiety, Depression Smoking Status: Current every day smoker Past Alcohol Use History: Daily Past Drug Use History: Marijuana - Past Family History Mother Family Medical History: Cancer General Exam Limitations: no limitations General appearance: alert, in no apparent distress Head exam: Present: atraumatic, normocephalic, normal inspection Eye exam: Present: normal appearance, PERRL, EOMI. Absent: scleral icterus, conjunctival injection, periorbital swelling ENT exam: Present: normal exam, mucous membranes moist Neck exam: Present: normal inspection. Absent: tenderness, meningismus, lymphadenopathy Respiratory exam: Present: normal lung sounds bilaterally. Absent: respiratory distress, wheezes, rales, rhonchi, stridor Cardiovascular Exam: Present: regular rate, normal rhythm, normal heart sounds. Absent: systolic murmur, diastolic murmur, rubs, gallop, clicks GI/Abdominal exam: Present: soft, normal bowel sounds. Absent: distended, tenderness, guarding, rebound, rigid Extremities exam: Present: normal inspection, full ROM, normal capillary refill. Absent: tenderness, pedal edema, joint swelling, calf tenderness Back exam: Present: normal inspection Neurological exam: Present: alert, oriented X3, CN II-XII intact Psychiatric exam: Present: normal affect, normal mood Skin exam: Present: warm, dry, intact, normal color. Absent: rash Course Vital Signs 02/13/21 02/13/21 03:13 05:07 Temperature 97.6 F Pulse Rate 83 87 Respiratory 18 18 Rate Blood Pressure 141/80 127/76 O2 Sat by Pulse 100 99 Oximetry - Reevaluation(s) Reevaluation #1: 02/13/21 03:31 Medical record is reviewed Reevaluation #2: 02/13/21 05:51 Patient's pain is controlled Reevaluation #3: 02/13/21 05:51 patient informed results and questions answered Procedures - Orthopedic Splinting/Casting Injury #1 Side: left Upper Extremity Immobilizer: sling/shoulder immobilizer Medical Decision Making - Medical Decision Making 55 female DF for evaluation patient Dese for evaluation regarding left humerus fracture. Patient does have humerus fracture and can be discharged home, patient has swelling - Radiology Data Radiology results: report reviewed (Chest x-ray left humerus x-ray does show positive surgical neck fracture), image reviewed Disposition Clinical Impression: Fall, Left humeral fracture Disposition: HOME SELF-CARE Condition: Good Instructions (If sedation given, give patient instructions): Fall Prevention for Older Adults (ED), Proximal Humerus Fracture (ED) Is patient prescribed a controlled substance at d/c from ED?: No Referrals: Oniel Vasquez MD [STAFF PHYSICIAN] - 1-2 days
--- NOTE | 2021-02-13 04:17 | XR ---
EXAM: XR Chest, 1 View CLINICAL HISTORY: ITS.REASON XR Reason: fall TECHNIQUE: Frontal view of the chest. COMPARISON: No relevant prior studies available. FINDINGS: Lungs: Unremarkable. No consolidation. Pleural space: Unremarkable. No pneumothorax. Heart: Unremarkable. No cardiomegaly. Mediastinum: Unremarkable. Bones/joints: Fracture through the surgical neck of the left humerus. IMPRESSION: 1. No acute pulmonary process. 2. Fracture through the surgical neck of the left humerus is better seen on concurrent left shoulder radiograph performed on same date.
--- NOTE | 2021-02-13 04:17 | XR ---
EXAM: XR Left Shoulder Complete, 2 or More Views CLINICAL HISTORY: ITS.REASON XR Reason: fall TECHNIQUE: Two or more views of the left shoulder. COMPARISON: No relevant prior studies available. FINDINGS: Bones/joints: There is a minimally displaced fracture through the surgical neck of the left humerus with slight apex medial angulation. No left glenohumeral dislocation. Soft tissues: Unremarkable. IMPRESSION: Minimally displaced fracture through the surgical neck of the left humerus with no glenohumeral dislocation.
[2021-02-13 05:08] VITALS: BP 127/76; PULSE 87
[2021-02-13] MEDS ORDERED: Acetaminophen-Codeine 300-30mg TAB PO STA (05:52)
[2021-02-13] MEDS ORDERED: ACET/COD 300 MG/30 MG STARTER PACK 6 TAB BTL PO STA (05:52)
== END 2021-02-13 07:10 | disposition home or self-care (01) ==
LOC: EC 03:03
DX: S42.212A Unspecified displaced fracture of surgical neck of left humerus, initial encounter for closed fracture (principal); F32.9 Major depressive disorder, single episode, unspecified; F41.9 Anxiety disorder, unspecified; F17.200 Nicotine dependence, unspecified, uncomplicated; F10.129 Alcohol abuse with intoxication, unspecified; G40.909 Epilepsy, unspecified, not intractable, without status epilepticus; J45.909 Unspecified asthma, uncomplicated; K21.9 Gastro-esophageal reflux disease without esophagitis; W18.30XA Fall on same level, unspecified, initial encounter
CPT/HCPCS: 71045; 99283

== ENCOUNTER 2021-05-05 16:19 | Inpatient (IN) | payer MEDICARE, OTHER ==
[2021-05-05] MEDS ORDERED: MORPHINE SULFATE 4 MG/ML SYRINGE IM STA (17:13)
--- NOTE | 2021-05-05 17:53 | XR ---
EXAMINATION TYPE: XR shoulder complete LT DATE OF EXAM: 05/05/2021 COMPARISON: 02/13/2021 HISTORY: Shoulder pain TECHNIQUE: 3 views FINDINGS: There is callus formation around the left humeral neck related to healing fracture. There i s 50% offset. There is no dislocation. I see no acute fracture.. IMPRESSION: Healing fracture of the left humeral neck with improved alignment compared to old exam of 02/13/2021
--- NOTE | 2021-05-05 17:54 | XR ---
EXAMINATION TYPE: XR foot complete RT DATE OF EXAM: 05/05/2021 COMPARISON: NONE HISTORY: Foot pain TECHNIQUE: 3 views FINDINGS: Metatarsals are intact. I see no fracture nor dislocation. There is some Achilles calcaneal spurring. The toes appear intact. IMPRESSION: No acute abnormality of the right foot. No fracture.
--- NOTE | 2021-05-05 17:55 | XR ---
EXAMINATION TYPE: XR Hip RT and AP Pelvis DATE OF EXAM: 05/05/2021 COMPARISON: NONE HISTORY: Pain TECHNIQUE: 3 views FINDINGS: The pelvic ring appears intact. Proximal right femur and hip joint are intact. There is no sign of hip dysplasia. Sacroiliac joints appear intact. IMPRESSION: Negative pelvis and right hip exam. No fracture seen.
--- NOTE | 2021-05-05 18:17 | ED ---
General Adult HPI - General Chief complaint: Extremity Injury, Upper Stated complaint: fall, shoulder pain Time Seen by Provider: 05/05/21 16:36 Source: patient, EMS Mode of arrival: EMS - History of Present Illness Initial comments: 55-year-old female with a past medical history of asthma, GERD, memory impairment, closed head injury presents to the emergency room for a chief c omplaint of fall. Patient apparently had 2 falls in the past 2 days. Patient has balance problems according to her chart. Patient fell yesterday and apparently broke her left humerus. She was seen at another facility. At that time she had tripped on a stair and fallen. Patient had another fall today and has pain in her left foot and right hip. She reports that she felt today because she could not find her cane and lost her balance. She did not hit her head.Patient has no other complaints at this time including shortness of breath, chest pain, abdominal pain, nausea or vomiting, headache, or visual changes. - Related Data Home Medications Medication Instructions Recorded Confirmed DULoxetine HCL [Cymbalta] 60 mg PO BID 03/03/14 10/28/19 Docusate [Colace] 100 mg PO HS 03/03/14 10/28/19 Loratadine [Claritin] 10 mg PO DAILY 03/03/14 10/28/19 levETIRAcetam [Keppra] 1,000 mg PO QAM 03/03/14 10/28/19 traZODone HCL [Desyrel] 100 mg PO HS 03/26/16 10/28/19 ARIPiprazole [Abilify] 5 mg PO QAM 11/10/16 10/28/19 Baclofen 10 mg PO HS 11/10/16 10/28/19 oxyCODONE HCL [OxyCONTIN] 30 mg PO Q12H 11/10/16 10/28/19 oxyCODONE HCL [oxyCODONE HCL (IR)] 20 mg PO DAILY@1200 PRN 11/10/16 10/28/19 Pantoprazole [Protonix] 40 mg PO DAILY 06/07/19 10/28/19 busPIRone HCl [Buspar] 5 mg PO TID 06/07/19 10/28/19 rOPINIRole HCL [Requip] 0.5 mg PO DAILY 06/07/19 10/28/19 Allergies Allergy/AdvReac Type Severity Reaction Status Date / Time No Known Allergies Allergy Verified 02/13/21 03:21 Review of Systems ROS Statement: Those systems with pertinent positive or pertinent negative responses have been documented in the HPI. ROS Other: All systems not noted in ROS Statement are negative. Past Medical History Past Medical History: Asthma, GERD/Reflux, Memory Impairment, Seizure Disorder Additional Past Medical History / Comment(s): HX CLOSED HEAD INJ, IN A COMA years ago pt states; BLOOD PRESSURE RUNS LOW; IBS/CONSTIPATION; CHRONIC BACK PAIN; POOR BALANCE History of Any Multi-Drug Resistant Organisms: MRSA Date of last positivie culture/infection: 06/15/2007 MDRO Source:: Left Axilla Past Surgical History: Hysterectomy Additional Past Surgical History / Comment(s): PAIN PROCs Past Anesthesia/Blood Transfusion Reactions: No Reported Reaction Additional Past Anesthesia/Blood Transfusion Reaction / Comment(s): no hx blood transfusion Past Psychological History: Anxiety, Depression Smoking Status: Current every day smoker Past Alcohol Use History: Daily Past Drug Use History: Marijuana - Past Family History Mother Family Medical History: Cancer General Exam - General Exam Comments Initial Comments: Left arm: Patient unable to move the left shoulder secondary to pain. Radial pulses 2+. Capillary refill less than 2 seconds. Full range of motion in the left wrist and fingers. Right foot: No significant edema or ecchymosis noted of the right foot. Patient has tenderness to the forefoot. DP pulses 2+. Capillary refill less than 2 seconds. Patient also has right hip pain. General appearance: alert, in no apparent distress Head exam: Present: atraumatic Eye exam: Present: normal appearance, PERRL, EOMI. Absent: scleral icterus, conjunctival injection, periorbital swelling ENT exam: Present: normal exam, mucous membranes moist Neck exam: Present: normal inspection. Absent: tenderness, meningismus, lymphadenopathy Respiratory exam: Present: normal lung sounds bilaterally. Absent: respiratory distress, wheezes, rales, rhonchi, stridor Cardiovascular Exam: Present: regular rate, normal rhythm, normal heart sounds. Absent: systolic murmur, diastolic murmur, rubs, gallop, clicks GI/Abdominal exam: Present: soft, normal bowel sounds. Absent: distended, tenderness, guarding, rebound, rigid Course Vital Signs 05/05/21 16:23 Temperature 99.4 F Pulse Rate 96 Respiratory 18 Rate Blood Pressure 128/73 O2 Sat by Pulse 99 Oximetry Medical Decision Making - Medical Decision Making X-ray of the left shoulder shows a healing fracture of the left humeral neck with improved alignment compared to old exam. X-ray of the foot is negative. X-ray of the right hip and pelvis is negative as well. 55-year-old female presents to the emergency room for a chief complaint of fall. Patient fell both yesterday and today. She appears to have a healing displaced humeral neck fracture from January. Patient also hurt her foot and ankle today. X-rays were performed of the shoulder which did show this healing fracture. X-ray of the hip and pelvis as well as the foot and ankle are negative for fracture. I did attempt to ambulate pt and she is unable to bear weight on the right leg has of ankle pain. Patient lives alone at home. Patient has had increased falls lately and cannot use crutches secondary to her shoulder. At this point we will admit patient. She may require rehab if she is not able to use the foot and ankle. Case was discussed with Dr. Lacy does accept the admission. Does prefer CAT scan be performed to rule out any intracranial abnormality after fall. We will order labs and a urine test for inpatient evaluation. Disposition Clinical Impression: Unable to ambulate, Ankle pain, Fracture of humerus with delayed healing Disposition: ADMITTED IP TO THIS HOSP Is patient prescribed a controlled substance at d/c from ED?: No Referrals: Vitaliy Steen DO [Primary Care Provider] - 1-2 days Time of Disposition: 19:12
--- NOTE | 2021-05-05 18:40 | XR ---
EXAMINATION TYPE: XR ankle complete RT DATE OF EXAM: 05/05/2021 COMPARISON: NONE HISTORY: Ankle pain TECHNIQUE: 3 views FINDINGS: Ankle mortise is anatomic. I see no fracture nor dislocation. Joint spaces are fairly charlotte l. There is some calcaneal spurring. IMPRESSION: Achilles calcaneal spurring. No fracture seen.
[2021-05-05] MEDS ORDERED: HYDROmorphone 0.5 MG/0.5 ML SYRINGE IVP PRN (19:12)
[2021-05-05] MEDS ORDERED: NALOXONE 0.4 MG/ML 1 ML VIAL IV PRN (19:12)
[2021-05-05] MEDS ORDERED: HYDROmorphone 0.5 MG/0.5 ML SYRINGE IVP STA (19:13)
[2021-05-05] MEDS: SODIUM CHLORIDE 0.9% 1,000 ML IV SCH (19:43)
--- NOTE | 2021-05-05 19:49 | CT ---
EXAMINATION TYPE: CT brain lee annine wo con DATE OF EXAM: 05/05/2021 COMPARISON: 06/07/2019 HISTORY: fall CT DLP: 1173.3 mGycm Automated exposure control for dose reduction was used. There is large area of hypodensity in the left temporal lobe consistent with old infarct and encephal omalacia. There is enlargement of the temporal horn left lateral ventricle the right lateral ventricl e appears fairly normal. The calvarium is intact. The cervical vertebra have fairly normal alignment. Posterior elements are intact. There is narrowing of C4-5 disc space with spurring. There is mild narrowing at C5-6 disc space. Facet joints are intac t. IMPRESSION: Left temporal lobe encephalomalacia without change compared to old exam. No acute intracranial abnorm ality. Minor degenerative changes in the cervical spine. No fracture. No change compared to old exam.
[2021-05-05 19:50] LABS: Basophils % (A) 1 %; Eosinophils # (A) 0.1 k/uL (0-0.7); Eosinophils % (A) 1 %; HCT 39.2 % (34.0-46.0); HGB 12.7 gm/dL (11.4-16.0); Lymphocytes % (A) 16 %; MCHC 32.3 g/dL (31.0-37.0); MCV 89.9 fL (80.0-100.0); Mean Platelet Volume 8.1; Monocytes # (A) 0.3 k/uL (0-1.0); Monocytes % (A) 5 %; Neutrophils # (A) 4.8 k/uL (1.3-7.7); Neutrophils % (A) 76 %; Platelet Count 150 k/uL (150-450); RBC 4.36 m/uL (3.80-5.40); RDW 14.2 % (11.5-15.5); WBC 6.3 k/uL (3.8-10.6)
[2021-05-05 20:11] LABS: ALT 24 U/L (4-34); AST 49 U/L (14-36); African American GFR (CKD) >90 (>60 ml/min/1.73 sqM); Albumin 4.7 g/dL (3.5-5.0); Alkaline Phosphatase 106 U/L (38-126); Anion Gap 10 mmol/L; Blood Urea Nitrogen 11 mg/dL (7-17); Calcium 9.2 mg/dL (8.4-10.2); Carbon Dioxide 25 mmol/L (22-30); Chloride 103 mmol/L (98-107); Glucose 112 mg/dL (74-99); Non-African American GFR(CKD) >90 (>60 ml/min/1.73 sqM); Potassium 4.1 mmol/L (3.5-5.1); Sodium 138 mmol/L (137-145); Total Bilirubin 0.9 mg/dL (0.2-1.3); Total Protein 7.4 g/dL (6.3-8.2)
[2021-05-05] MEDS: DULoxetine HCL 60 MG CAPSULE.DR PO SCH (21:49)
[2021-05-05] MEDS: traZODone HCL 100 MG TAB PO SCH (21:49)
[2021-05-05] MEDS: busPIRone HCl 5 MG TAB PO SCH (21:49)
[2021-05-05] MEDS: BACLOFEN 10 MG TAB PO SCH (21:49)
[2021-05-05] MEDS: HEPARIN SODIUM,PORCINE/PF 5,000 UNIT/0.5 ML SYRINGE SQ SCH (21:49)
[2021-05-05] MEDS: DOCUSATE 100 MG CAP PO SCH (21:49)
[2021-05-05] MEDS ORDERED: THIAMINE 100 MG/ML 2 ML VIAL IM STA (21:59)
[2021-05-05] MEDS ORDERED: LORazepam 2 MG/ML INJ IV PRN ×3 (21:59)
[2021-05-05] MEDS: THIAMINE 100 MG TAB PO SCH (22:47)
[2021-05-05] MEDS: oxyCODONE ER 15 MG TAB.ER.12H PO SCH (22:47)
--- NOTE | 2021-05-05 22:49 | HP ---
HISTORY AND PHYSICAL DATE OF SERVICE: 05/05/2021 CHIEF COMPLAINTS: Fall and left shoulder pain. HISTORY OF PRESENT ILLNESS: This 55-year-old woman with a past medical history of multiple medical problems including history of asthma, GERD, history of memory impairment, seizure disorder, closed head injury being followed by Dr. Vitaliy Steen in the outpatient setting, apparently lost a step and fell down at home and the patient suffered a left humerus fracture and evaluated in [facility]. The patient apparently went home and had a fall with a crutch and then complaining of pain in the hip and foot and the patient came to [facility] and admitted for evaluation and treatment. There is no history of fever, rigors. The patient is mildly confused, unable to give coherent history, partly because of the closed-head injury. Orthopedic evaluation also has been sought. PAST MEDICAL HISTORY: History of asthma, GERD, memory impairment, seizure disorder, closed-head injury. MEDICATIONS: Include Lioresal, Flonase, Elavil, Ventolin, Desyrel, Crestor, Requip, OxyContin, Protonix, Keppra, Claritin, Colace, Cymbalta, baclofen, BuSpar, Abilify. Doses reviewed. ALLERGIES: None. FAMILY HISTORY: History of cancer. SOCIAL HISTORY: History of smoking, continued ongoing. Occasional alcohol intake according to her. REVIEW OF SYSTEMS: ENT: No diminished vision. No diminished hearing. Otherwise as mentioned earlier. CARDIOVASCULAR: No angina or palpitations. RESPIRATIONS: No cough. No hemoptysis. GI: No nausea or vomiting. : No dysuria. NERVOUS SYSTEM: No numbness, weakness. ALLERGY/IMMUNOLOGY: Asthma present. No hay fever. MUSCULOSKELETAL: As mentioned earlier. HEMATOLOGY/ONCOLOGY: No history of anemia. ENDOCRINE: No history of diabetes. CONSTITUTIONAL: As mentioned earlier. DERMATOLOGY: Negative. RHEUMATOLOGY: As mentioned earlier. . PSYCHIATRY: As mentioned earlier. PHYSICAL EXAMINATION: Patient is alert, oriented x2. Pulse 75. Blood pressure 170/62, respirations 16, temperature 99.4, pulse ox 94% on room air. HEENT is conjunctivae normal. Oral mucosa moist. NECK is no jugular venous distention. No carotid bruit. No lymph node enlargement. CARDIOVASCULAR system: S1-S2 muffed. No S3, no S4. RESPIRATORY: Breath sounds diminished in the bases. A few scattered rhonchi. No crackles. ABDOMEN: Soft, nontender. LEGS: Are no edema. No swelling. NERVOUS SYSTEM: Higher functions as mentioned. Moves all four limbs. No focal deficits. LYMPHATICS: No lymph nodes palpable in the neck, axillae or groin. SKIN: No ulcer, no rash and no bleeding. JOINTS: No active deforming arthropathy. Examination of the left humerus status post fall, movements extremely painful. Left shoulder movements. LABS: Glucose 112, AST is 49. ASSESSMENT: 1. Status post fractured left humerus with dislocation, severe pain. 2. History of repeated falls at home. 3. Change in mental status acute metabolic encephalopathy, multifactorial. 4. Increased AST. 5. History of asthma. 6. History of gastroesophageal reflux disease. 7. History of memory impairment. 8. History of seizure disorder. 9. History of closed-head injury. 10.History of low blood pressure. 11.History of chronic back pain. 12.History of chronic pain syndrome. 13.History of MRSA. 14.History of anxiety, depression. 15.History of nicotine dependence. 16.History of ETOH. 17.History of marijuana. 18.FULL CODE. RECOMMENDATIONS AND DISCUSSION: This 55-year-old woman who presented with multiple complex medical issues, we will monitor the patient closely. I would recommend resume the home medications. DVT prophylaxis. Orthopedic evaluation for possible surgery. Otherwise, the patient has poor social support also. I would also recommend PT/OT evaluation, possible ECF rehab because of repeated falls at home even after sustaining the fracture. Prognosis guarded. A copy of dictation is being forwarded to Dr. Vitaliy Steen, who is the primary physician. Recommend CIWA protocol if the patient is getting more confused. MMODL / IJN: [id number] / MTDD
[2021-05-05 22:51] LABS: ALT 20 U/L (4-34); AST 36 U/L (14-36); African American GFR (CKD) >90 (>60 ml/min/1.73 sqM); Albumin 3.9 g/dL (3.5-5.0); Albumin/Globulin Ratio 1.7; Alcohol <10 mg/dL; Alkaline Phosphatase 86 U/L (38-126); Anion Gap 6 mmol/L; Blood Urea Nitrogen 10 mg/dL (7-17); Calcium 8.4 mg/dL (8.4-10.2); Carbon Dioxide 27 mmol/L (22-30); Chloride 103 mmol/L (98-107); Globulin 2.3 g/dL; Glucose 111 mg/dL (74-99); Non-African American GFR(CKD) >90 (>60 ml/min/1.73 sqM); Potassium 3.6 mmol/L (3.5-5.1); Sodium 136 mmol/L (137-145); Total Bilirubin 0.6 mg/dL (0.2-1.3); Total Protein 6.2 g/dL (6.3-8.2)
--- NOTE | 2021-05-05 23:17 | XR ---
EXAMINATION TYPE: XR chest 1V portable DATE OF EXAM: 05/05/2021 COMPARISON: 02/13/2021 HISTORY: Fall. Pain. TECHNIQUE: Single view FINDINGS: Heart and mediastinum are normal. Lungs are clear of infiltrate. There is no heart failure. There are no hilar masses. There is healing fracture of the proximal left humerus with bridging call us. There is 50% offset. Fracture line is still visible. IMPRESSION: Healing fracture of the proximal left humerus. No active cardiopulmonary disease.
[2021-05-06 01:13] LABS: Appearance,Urine Clear (Clear); Bilirubin,Urine Negative (Negative); Blood,Urine Negative (Negative); Color,Urine Yellow; Glucose,Urine (UA) Negative (Negative); Ketones,Urine 1+ (Negative); Leukocyte Esterase,Urine Negative (Negative); Nitrite,Urine Negative (Negative); PH, Urine 5.5 (5.0-8.0); Protein,Urine Trace (Negative); Specific Gravity,Urine 1.021 (1.001-1.035); Urobilinogen,Urine <2.0 mg/dL (<2.0)
[2021-05-06] MEDS ORDERED: ALBUTEROL NEBULIZED 2.5 MG/3 ML INHALATION PRN (02:00)
[2021-05-06] MEDS ORDERED: ACETAMINOPHEN TAB 325 MG TAB PO PRN (03:07)
[2021-05-06] MEDS: IPRATROPIUM 0.5 MG/2.5 ML NEBU INHALATION SCH ×4 (07:19→20:21)
[2021-05-06] MEDS: THIAMINE 100 MG TAB PO SCH ×2 (07:45→16:51)
[2021-05-06] MEDS: PANTOPRAZOLE 40 MG TABLET PO SCH (07:46)
[2021-05-06] MEDS: SODIUM CHLORIDE 0.9% 1,000 ML IV SCH (07:48)
[2021-05-06] MEDS: ARIPiprazole 5 MG TAB PO SCH (08:36)
[2021-05-06] MEDS: busPIRone HCl 5 MG TAB PO SCH ×3 (08:36→20:13)
[2021-05-06] MEDS: HEPARIN SODIUM,PORCINE/PF 5,000 UNIT/0.5 ML SYRINGE SQ SCH ×2 (08:36→20:13)
[2021-05-06] MEDS: DULoxetine HCL 60 MG CAPSULE.DR PO SCH ×2 (08:36→20:14)
[2021-05-06] MEDS: ATORVASTATIN 10 MG TAB PO SCH (08:36)
[2021-05-06] MEDS: LORATADINE 10 MG TAB PO SCH (08:37)
[2021-05-06] MEDS: levETIRAcetam 500 MG TAB PO SCH (08:37)
[2021-05-06] MEDS: FLUTICASONE 50MCG/SPRAY NASAL 16GM EA NOSTRIL SCH (08:38)
[2021-05-06] MEDS: oxyCODONE ER 15 MG TAB.ER.12H PO SCH ×3 (08:42→20:14)
--- NOTE | 2021-05-06 09:39 | P.CNOR ---
History of Present Illness - [facility] Consult date: 05/06/21 History of present illness: This is a 55-year-old female who is admitted after a fall. Orthopedics is consulted due to left proximal humerus fracture. The patient is seen and evaluated at bedside today, but states that she does not remember her injury and cannot give any history. There is no family present in the room today. Patient was evaluated in the emergency room and x-rays revealed a healing left proximal humerus fracture. Patient reportedly fractured her left proximal humerus initially in January 2021. Patient also complains of pain in the right ankle today. Review of Systems ROS unobtainable: due to mental status Past Medical History Past Medical History: Asthma, GERD/Reflux, Memory Impairment, Seizure Disorder Additional Past Medical History / Comment(s): HX CLOSED HEAD INJ, IN A COMA years ago pt states; BLOOD PRESSURE RUNS LOW; IBS/CONSTIPATION; CHRONIC BACK PAIN; POOR BALANCE History of Any Multi-Drug Resistant Organisms: MRSA Year Discovered:: 06/15/2007 MDRO Source:: Left Axilla Past Surgical History: Hysterectomy Additional Past Surgical History / Comment(s): PAIN PROCs Past Anesthesia/Blood Transfusion Reactions: No Reported Reaction Additional Past Anesthesia/Blood Transfusion Reaction / Comm: no hx blood transfusion Past Psychological History: Anxiety, Depression Smoking Status: Current every day smoker Past Alcohol Use History: Daily Additional Past Alcohol Use History / Comment(s): started smoking at age 16 Past Drug Use History: Marijuana Additional Drug Use History / Comment(s): mother states "no marijuana use - Past Family History Mother Family Medical History: Cancer Medications and Allergies Home Medications Medication Instructions Recorded Confirmed Type DULoxetine HCL [Cymbalta] 60 mg PO BID-W/MEALS 03/03/14 05/05/21 History Docusate [Colace] 100 mg PO Q48H 03/03/14 05/05/21 History Loratadine [Claritin] 10 mg PO DAILY 03/03/14 05/05/21 History levETIRAcetam [Keppra] 1,000 mg PO HS 03/03/14 05/05/21 History ARIPiprazole [Abilify] 5 mg PO QAM 11/10/16 05/05/21 History Baclofen 10 mg PO HS 11/10/16 05/05/21 History oxyCODONE HCL [OxyCONTIN] 30 mg PO Q12H 11/10/16 05/05/21 History oxyCODONE HCL [oxyCODONE HCL (IR)] 20 mg PO DAILY@1200 PRN 11/10/16 05/05/21 History Pantoprazole [Protonix] 40 mg PO BID-W/MEALS 06/07/19 05/05/21 History busPIRone HCl [Buspar] 5 mg PO BID-W/MEALS 06/07/19 05/05/21 History rOPINIRole HCL [Requip] 0.5 mg PO HS 06/07/19 05/05/21 History Albuterol Inhaler [Ventolin Hfa 1 - 2 puff INHALATION RT-Q6H PRN 05/05/21 05/05/21 History Inhaler] Amitriptyline HCl [Elavil] 50 mg PO HS 05/05/21 05/05/21 History Aspirin EC [Ecotrin Low Dose] 81 mg PO DAILY 05/05/21 05/05/21 History Baclofen [Lioresal] 10 mg PO DAILY 05/05/21 05/05/21 History Fluticasone Nasal [place] [Flonase 1 spray EA NOSTRIL DAILY 05/05/21 05/05/21 History Nasal [place]] Rosuvastatin [Crestor] 5 mg PO DAILY 05/05/21 05/05/21 History Umeclidinium [place] [Incruse 1 puff INHALATION RT-DAILY 05/05/21 05/05/21 History Ellipta] traZODone HCL [Desyrel] 100 mg PO HS 05/05/21 05/05/21 History Allergies Allergy/AdvReac Type Severity Reaction Status Date / Time No Known Allergies Allergy Verified 05/05/21 20:56 Physical Examination On exam patient is resting comfortably in bed in no acute distress. Patient is alert, but somewhat confused. The left shoulder is mildly swollen but nontender to palpation. Patient has very limited motion of the left shoulder. The left upper extremity is warm and well perfused. There is no erythema or ecchymosis and skin is intact. Sensation intact. There is tenderness to palpation over the posterior aspect of the right ankle. Achilles tendon is mildly tender to palpation. Shah's test is negative. There is mild swelling of the right ankle. There is no tenderness to palpation over the medial or lateral malleoli. The right foot is nontender to palpation. Patient is able to actively dorsiflex and plantar flex the right ankle with minimal discomfort. Calf is soft and nontender to palpation. Sensation intact. Neurovascular status and circulatory status are intact. The left ankle is nontender to palpation. Results X-rays of the left humerus reveal an old and healing fracture of the left proximal humerus. X-rays of the right ankle and foot are reviewed and are negative for any fracture or dislocation. Mild arthritic changes noted. - Labs Labs: Abnormal Lab Results - Last 24 Hours (Table) 05/05/21 05/05/21 05/06/21 Range/Units 19:37 22:10 00:45 Sodium 136 L (137-145) mmol/L Glucose 112 H 111 H (74-99) mg/dL AST 49 H (14-36) U/L Total Protein 6.2 L (6.3-8.2) g/dL Urine Protein Trace H (Negative) Urine Ketones 1+ H (Negative) H & H 05/05/21 Range/Units 19:37 Hgb 12.7 (11.4-16.0) gm/dL Hct 39.2 (34.0-46.0) % Result Diagrams: 05/05/21 19:37 05/05/21 22:10 Assessment and Plan Assessment: Old and healing left proximal humerus fracture (1) Right ankle sprain Current Visit: Yes Status: Acute Code(s): S93.401A - SPRAIN OF UNSPECIFIED LIGAMENT OF RIGHT ANKLE, INIT ENCNTR SNOMED Code(s): 62007712 (2) Fall Current Visit: No Status: Acute Code(s): W19.XXXA - UNSPECIFIED FALL, INITIAL ENCOUNTER SNOMED Code(s): 4659116 Plan: 1. Will obtain a boot for the right lower extremity. Patient may weight-bear as tolerated with the boot in place. 2. Recommend physical therapy for mobilization. 3. Rest, ice and elevate the right lower extremity. 4. X-rays reveal an old and healing left proximal humerus fracture. Patient may benefit from physical therapy for the left upper extremity as well. 5. No surgical intervention planned. Patient may follow up as an outpatient.
[2021-05-06 12:35] LABS: Basophils # (A) 0.05 X 10*3/uL (0.00-0.10); Basophils % (A) 1.2 %; Eosinophils # (A) 0.04 X 10*3/uL (0.04-0.35); HCT 34.8 % (37.2-46.3); Lymphocytes # (A) 1.22 X 10*3/uL (0.90-5.00); Lymphocytes % (A) 29.3 %; MCH 29.3 pg (27.0-32.0); MCHC 31.6 g/dL (32.0-37.0); MCV 92.6 fL (80.0-97.0); Mean Platelet Volume 11.5 fL (9.5-12.2); Monocytes # (A) 0.44 X 10*3/uL (0.20-1.00); Monocytes % (A) 10.6 %; Neutrophils # (A) 2.39 X 10*3/uL (1.80-7.70); Neutrophils % (A) 57.4 %; Platelet Count 127 X 10*3/uL (140-440); RBC 3.76 X 10*6/uL (4.10-5.20); RDW 14.2 % (11.5-14.5); WBC 4.16 X 10*3/uL (4.50-10.00)
[2021-05-06 12:56] VITALS: BMI 17.2
[2021-05-06] MEDS: DOCUSATE 100 MG CAP PO SCH (20:13)
[2021-05-06] MEDS: BACLOFEN 10 MG TAB PO SCH (20:13)
[2021-05-06] MEDS: traZODone HCL 100 MG TAB PO SCH (20:14)
[2021-05-06] MEDS ORDERED: traZODone HCL 100 MG TAB PO SCH (21:00)
[2021-05-06] MEDS ORDERED: AMITRIPTYLINE HCL 50 MG TAB PO SCH (21:00)
[2021-05-06 21:29] VITALS: RESP 17
--- NOTE | 2021-05-06 22:14 | PN ---
PROGRESS NOTE DATE OF SERVICE: 05/06/2021. This 55-year-old woman who was admitted with history of left humerus fracture and probable sprain of the right ankle is being closely monitored at this time. Orthopedics following the patient. Recommend continued outpatient followup. The caregiver is worried that the patient does not have robust social support at home. Right ankle sprain was suspected. Patient closely monitored. No chest pain. No palpitations. No fever. PHYSICAL EXAMINATION: Alert and oriented x3. Pulse is 104. Blood pressure 111/70, respirations 16, temperature 97.4, pulse ox 94% on room air. HEENT: Conjunctivae normal. Neck: No JVD. Cardiovascular: S1, S2 muffled. Respiratory: Breath sounds diminished in the bases. A few scattered rhonchi. Abdomen: Soft. Nervous system: No focal deficits. LABS: Platelets 127, WBC 4.67. Hemoglobin 11 sodium is 136. UA noted. ASSESSMENT: 1. Status post fall and right ankle sprain and gait dysfunction. 2. History of recent left humerus fracture. 3. History of repeated falls at home. 4. Change in mental status, acute metabolic encephalopathy, multifactorial. 5. Increased AST. 6. History of asthma. 7. History of possible ETOH. 8. History of gastroesophageal reflux disease. 9. History of memory impairment. 10.History of seizure disorder. 11.History of closed-head injury. 12.History of low blood pressure. 13.History of chronic back pain. 14.History of chronic pain syndrome. 15.History of MRSA. 16.History of anxiety, depression. 17.History of nicotine dependence. 18.History of THC. 19.FULL CODE. RECOMMENDATIONS AND DISCUSSION: Continue current medications, symptomatic treatment. Otherwise, foster care social worker and medical case worker to evaluate the home situation before discharge. Conservative line of treatment. Otherwise, closely follow with Orthopedic surgery. Guarded prognosis because of multiple complex medical issues. Further recommendations to follow. MMODL / IJN: [id number] /
[2021-05-07] MEDS: SODIUM CHLORIDE 0.9% 1,000 ML IV SCH ×2 (01:22→11:47)
[2021-05-07] MEDS: PANTOPRAZOLE 40 MG TABLET PO SCH (07:44)
[2021-05-07] MEDS: THIAMINE 100 MG TAB PO SCH (07:45)
[2021-05-07] MEDS: IPRATROPIUM 0.5 MG/2.5 ML NEBU INHALATION SCH ×3 (08:53→16:22)
[2021-05-07] MEDS: busPIRone HCl 5 MG TAB PO SCH (09:39)
[2021-05-07] MEDS: ATORVASTATIN 10 MG TAB PO SCH (09:39)
[2021-05-07] MEDS: DULoxetine HCL 60 MG CAPSULE.DR PO SCH (09:40)
[2021-05-07] MEDS: levETIRAcetam 500 MG TAB PO SCH (09:41)
[2021-05-07] MEDS: LORATADINE 10 MG TAB PO SCH (09:41)
[2021-05-07] MEDS: ARIPiprazole 5 MG TAB PO SCH (09:41)
[2021-05-07] MEDS: FLUTICASONE 50MCG/SPRAY NASAL 16GM EA NOSTRIL SCH (09:41)
[2021-05-07] MEDS: HEPARIN SODIUM,PORCINE/PF 5,000 UNIT/0.5 ML SYRINGE SQ SCH (09:42)
[2021-05-07] MEDS: oxyCODONE ER 15 MG TAB.ER.12H PO SCH (10:59)
[2021-05-07 12:23] LABS: African American GFR (CKD) 118.9 (60.0-200.0); Anion Gap 4.2 mmol/L (4.00-12.00); BUN/Creat Ratio 16.67 Ratio (12.00-20.00); Carbon Dioxide 28.8 mmol/L (21.6-31.8); Non-African American GFR(CKD) 102.6 (60.0-200.0)
[2021-05-07 12:29] LABS: Basophils # (A) 0.06 X 10*3/uL (0.00-0.10); Basophils % (A) 1.5 %; Eosinophils # (A) 0.14 X 10*3/uL (0.04-0.35); Eosinophils % (A) 3.6 %; HCT 32.4 % (37.2-46.3); HGB 9.8 g/dL (12.0-15.0); Lymphocytes # (A) 1.23 X 10*3/uL (0.90-5.00); Lymphocytes % (A) 31.6 %; MCHC 30.2 g/dL (32.0-37.0); MCV 95.9 fL (80.0-97.0); Mean Platelet Volume 11.7 fL (9.5-12.2); Monocytes # (A) 0.47 X 10*3/uL (0.20-1.00); Monocytes % (A) 12.1 %; Neutrophils # (A) 1.98 X 10*3/uL (1.80-7.70); Neutrophils % (A) 50.9 %; Platelet Count 116 X 10*3/uL (140-440); RBC 3.38 X 10*6/uL (4.10-5.20); RDW 14.1 % (11.5-14.5); WBC 3.89 X 10*3/uL (4.50-10.00)
[2021-05-07 12:44] VITALS: BP 80/42; PULSE 103; TEMP 98.3
--- NOTE | 2021-05-07 12:52 | P.DS ---
Providers Date of admission: 05/06/21 15:49 Attending physician: Adolph Mike MD Consults: 05/05/21 21:28 Consult Physician Urgent Consulting Provider: Shaw Martin Consult Reason/Comments: humerous fx Do you want consulting provider notified?: Yes Primary care physician: Vitaliy [facility] [facility] Course: 55-year-old female is admitted for right ankle pain and patient was diagnosed with sprain and was evaluated by arthritic surgery" was recommended and ice packing was recommended. Patient had a recent left humeral fracture for which patient can use to have a sling. Patient had a fall at that time. Patient denied any syncopal episode. Patient had the significant weakness probably resulted in her fall. Physical therapy and operations or pedal valid the patient is recommended placement in subacute rehabilitation although patient declined to go to subacute rehab. Case management and manager social will evaluate the patient will discuss with the patient regarding subacute rehabilitation and patient declines patient will be discharged on home with home care. Patient says she has a pets/dogs at home which someone else's watching and cannot leave them and cannot go to subacute rehab as per the patient. Patient apparently presented with confusion may be related to toxic encephalopathy from multiple low. She is on these need to be tapered down. I'm cutting down the dose of Flexeril for now. Patient had history of closed head injury and wasn't called coma at that time. Patient appears to have generalized deconditioning because of above-mentioned multiple comorbidities including head injury. Patient is very thin built. REVIEW OF SYSTEMS: CONSTITUTIONAL: No fever, no malaise, no fatigue. HEENT: No recent visual problems or hearing problems. Denied any sore throat. CARDIOVASCULAR: No chest pain, orthopnea, PND, no palpitations, no syncope. PULMONARY: No shortness of breath, no cough, no hemoptysis. GASTROINTESTINAL: No diarrhea, no nausea, no vomiting, no abdominal pain. NEUROLOGICAL: No headaches, no weakness, no numbness. HEMATOLOGICAL: Denies any bleeding or petechiae. GENITOURINARY: Denies any burning micturition, frequency, or urgency. MUSCULOSKELETAL/RHEUMATOLOGICAL: Denies any joint pain, swelling, or any muscle pain. ENDOCRINE: Denies any polyuria or polydipsia. The rest of the 14-point review of systems is negative. PHYSICAL EXAMINATION: GENERAL: The patient is alert and oriented x3, not in any acute distress. Thin built female HEENT: Pupils are round and equally reacting to light. EOMI. No scleral icterus. No conjunctival pallor. Normocephalic, atraumatic. No pharyngeal erythema. No thyromegaly. CARDIOVASCULAR: S1 and S2 present. No murmurs, rubs, or gallops. PULMONARY: Chest is clear to auscultation, no wheezing or crackles. ABDOMEN: Soft, nontender, nondistended, normoactive bowel sounds. No palpable organomegaly. MUSCULOSKELETAL: Deferred to orthopedic surgery EXTREMITIES: No cyanosis, clubbing, or pedal edema. NEUROLOGICAL: Gross neurological examination did not reveal any focal deficits. Does have generalized weakness SKIN: No rashes. Assessment and plan -Right ankle sprain: Patient will be discharged on improved and ice packing patient is declining subacute rehab as mentioned above -Hypotension with blood pressure in 90s systolic secondary to multiple opiate medications these need to be tapered down as an outpatient cutting down Flexeril dose as mentioned above - recent right proximal humerus fracture for which patient has a sling. This appears to be healing from the imaging studies -History of asthma without any acute exacerbation -Gastroesophageal reflux disease -Possible toxic encephalopathy and admission although patient is alert oriented 3 at this time this may be related to opiates and the Flexeril -Recurrent falls at home and because of generalized weakness patient declined to go to subacute rehabilitation Patient will be discharged today to subacute rehabilitation at home with home care depending on her wishes Plan - Discharge Summary Discharge Rx Participant: No New Discharge Prescriptions: Continue Docusate [Colace] 100 mg PO Q48H Loratadine [Claritin] 10 mg PO DAILY levETIRAcetam [Keppra] 1,000 mg PO HS DULoxetine HCL [Cymbalta] 60 mg PO BID-W/MEALS ARIPiprazole [Abilify] 5 mg PO QAM oxyCODONE HCL [oxyCODONE HCL (IR)] 20 mg PO DAILY@1200 PRN PRN Reason: Breakthrough Pain oxyCODONE HCL [OxyCONTIN] 30 mg PO Q12H rOPINIRole HCL [Requip] 0.5 mg PO HS Pantoprazole [Protonix] 40 mg PO BID-W/MEALS busPIRone HCl [Buspar] 5 mg PO BID-W/MEALS Amitriptyline HCl [Elavil] 50 mg PO HS traZODone HCL [Desyrel] 100 mg PO HS Albuterol Inhaler [Ventolin Hfa Inhaler] 1 - 2 puff INHALATION RT-Q6H PRN PRN Reason: Shortness Of Breath Aspirin EC [Ecotrin Low Dose] 81 mg PO DAILY Fluticasone Nasal [place] [Flonase Nasal [place]] 1 spray EA NOSTRIL DAILY Rosuvastatin [Crestor] 5 mg PO DAILY Umeclidinium [place] [Incruse Ellipta] 1 puff INHALATION RT-DAILY Changed Baclofen 5 mg PO HS #0 Baclofen [Lioresal] 5 mg PO DAILY PRN #0 PRN Reason: Spasms Discharge Medication List DULoxetine HCL [Cymbalta] 60 mg PO BID-W/MEALS 03/03/14 [History] Docusate [Colace] 100 mg PO Q48H 03/03/14 [History] Loratadine [Claritin] 10 mg PO DAILY 03/03/14 [History] levETIRAcetam [Keppra] 1,000 mg PO HS 03/03/14 [History] ARIPiprazole [Abilify] 5 mg PO QAM 11/10/16 [History] oxyCODONE HCL [OxyCONTIN] 30 mg PO Q12H 11/10/16 [History] oxyCODONE HCL [oxyCODONE HCL (IR)] 20 mg PO DAILY@1200 PRN 11/10/16 [History] Pantoprazole [Protonix] 40 mg PO BID-W/MEALS 06/07/19 [History] busPIRone HCl [Buspar] 5 mg PO BID-W/MEALS 06/07/19 [History] rOPINIRole HCL [Requip] 0.5 mg PO HS 06/07/19 [History] Albuterol Inhaler [Ventolin Hfa Inhaler] 1 - 2 puff INHALATION RT-Q6H PRN 05/05/21 [History] Amitriptyline HCl [Elavil] 50 mg PO HS 05/05/21 [History] Aspirin EC [Ecotrin Low Dose] 81 mg PO DAILY 05/05/21 [History] Fluticasone Nasal [place] [Flonase Nasal [place]] 1 spray EA NOSTRIL DAILY 05/05/21 [History] Rosuvastatin [Crestor] 5 mg PO DAILY 05/05/21 [History] Umeclidinium [place] [Incruse [place]ipta] 1 puff INHALATION RT-DAILY 05/05/21 [History] traZODone HCL [Desyrel] 100 mg PO HS 05/05/21 [History] Baclofen 5 mg PO HS #0 05/07/21 [Rx] Baclofen [Lioresal] 5 mg PO DAILY PRN #0 05/07/21 [Rx] Follow up Appointment(s)/Referral(s): Vitaliy Steen DO [Primary Care Provider] - 05/14/21 11:30 am Shaw Martin DO [Doctor of Osteopathic Medicine] - 05/22/21 10:25 am Activity/Diet/Wound Care/Special Instructions: Weightbearing as tolerated in walking boot. Please follow up with [facility] and call with any questions or concerns, . Discharge Disposition: TRANSFER TO SNF/ECF
== END 2021-05-07 16:15 | DRG 562 ==
LOC: EC 16:19 → 4SSUR 19:32 → OBSVTOIN 05-06 15:49
PROVIDERS: ADMIT Internal Medicine; ATTEND Internal Medicine
DX: S93.401A Sprain of unspecified ligament of right ankle, initial encounter (principal); G93.41 Metabolic encephalopathy; G92 Toxic encephalopathy; M25.571 Pain in right ankle and joints of right foot; K21.9 Gastro-esophageal reflux disease without esophagitis; S42.292D Other displaced fracture of upper end of left humerus, subsequent encounter for fracture with routine healing; W19.XXXD Unspecified fall, subsequent encounter; Z91.81 History of falling; J45.909 Unspecified asthma, uncomplicated; Z90.710 Acquired absence of both cervix and uterus; Z86.14 Personal history of Methicillin resistant Staphylococcus aureus infection; F17.200 Nicotine dependence, unspecified, uncomplicated; S09.90XD Unspecified injury of head, subsequent encounter; R29.6 Repeated falls; G40.909 Epilepsy, unspecified, not intractable, without status epilepticus; G89.4 Chronic pain syndrome; M54.9 Dorsalgia, unspecified; F41.9 Anxiety disorder, unspecified; F32.9 Major depressive disorder, single episode, unspecified; R53.1 Weakness; I95.2 Hypotension due to drugs; T40.605A Adverse effect of unspecified narcotics, initial encounter; Y92.239 Unspecified place in hospital as the place of occurrence of the external cause; Z79.82 Long term (current) use of aspirin; Z79.899 Other long term (current) drug therapy
CPT/HCPCS: 70450; 71045; 72125; 73502; 80048; 80053; 80320; 81003; 82075; 83735; 85025; 87040; 94640; 96372; 99285

== ENCOUNTER → 2023-04-10 | Outpatient (CLI) | payer MEDICARE, OTHER ==
--- NOTE | 2023-04-13 09:23 | MM ---
Reason for Exam: Screening (asymptomatic). Last mammogram was performed 3 year(s) and 7 month(s) ago. Patient History: Menarche at age 17. First Full-Term at age 18. Hysterectomy at age 38. Postmenopausal. 09/28/2018, Benign Core Biopsy on the right side. 03/04/2018, MG discontinued stereo core RT on the right side. Risk Values: Sharron 5 year model risk: 1.0%. NCI Lifetime model risk: 6.2%. Prior Study Comparison: 08/16/2018 Bilateral Diagnostic Mammogram, [facility]. 05/12/2019 Right Diagnostic Mammogram, [facility]. 09/07/2019 Bilateral Diagnostic Mammogram, [facility]. Tissue Density: The breast tissue is heterogeneously dense. This may lower the sensitivity of mammography. Findings: Analyzed By CAD. Pattern appears stable. There is a new focal density within the medial left breast. This is not clearly identified on the mediolateral oblique view. Additional workup with compression views is recommended. Ultrasound may be required for additional workup. No suspicious right breast groups of microcalcifications, spiculated or lobular masses, architectural distortion or other secondary signs of malignancy are mammographically apparent. Overall Assessment: Incomplete: need additional imaging evaluation, BI-RAD 0 Management: Diagnostic Mammogram of the left breast. A negative mammogram report should not preclude additional follow up of suspicious palpable abnormalities. Patient should continue monthly self breast exam. A clinical breast exam by your physician is recommended on an annual basis and results should be correlated with mammographic findings. Electronically signed and approved by: Bora Juarez D.O. Radiologis
== END | disposition home or self-care (01) ==
LOC: RADMAMWWP 11:26
PROVIDERS: ATTEND Family Medicine
DX: Z12.31 Encounter for screening mammogram for malignant neoplasm of breast (principal); Z78.0 Asymptomatic menopausal state
CPT/HCPCS: 77063; 77067

== ENCOUNTER → 2023-04-23 | Outpatient (CLI) | payer MEDICARE, OTHER ==
--- NOTE | 2023-04-23 14:01 | MM ---
Reason for Exam: Additional evaluation requested from abnormal screening. Last screening mammogram was performed less than 1 month ago. Patient History: Menarche at age 17. First Full-Term at age 18. Hysterectomy at age 38. Postmenopausal. 09/28/2018, Benign Core Biopsy on the right side. 03/04/2018, MG discontinued stereo core RT on the right side. Risk Values: Sharron 5 year model risk: 1.0%. NCI Lifetime model risk: 6.2%. Prior Study Comparison: 05/12/2019 Right Diagnostic Mammogram, [facility]. 09/07/2019 Bilateral Diagnostic Mammogram, [facility]. 04/10/2023 Bilateral MG 3D screening mammo w/cad, [facility]. Tissue Density: Left: There are scattered fibroglandular densities. Findings: Analyzed By CAD. Persistent 1 cm asymmetry within the upper inner left breast approximately 2.5 cm from the nipple despite compression only on the cc view. No suspicious calcifications. Overall Assessment: Incomplete: need additional imaging evaluation, BI-RAD 0 Management: Diagnostic Breast Ultrasound of the left breast. A clinical breast exam by your physician is recommended on an annual basis and results should be correlated with mammographic findings. This exam should not preclude additional follow-up of suspicious palpable abnormalities. Results were given to the patient verbally at the time of exam. Note on Sharron scores and lifetime risk: 1. A Sharron score greater than 3% is considered moderate risk. If this is the case, consider specialist referral to assess eligibility for a risk reducing agent. If overall lifetime risk for the development of breast cancer is 20% or higher, the patient may qualify for future screening with alternating mammogram and breast MRI. Electronically signed and approved by: Frank Lopez D.O.
--- NOTE | 2023-04-23 14:47 | USB ---
Reason for Exam: Additional evaluation requested from abnormal screening. Patient History: Menarche at age 17. First Full-Term at age 18. Hysterectomy at age 38. Postmenopausal. 09/28/2018, Benign Core Biopsy on the right side. 03/04/2018, MG discontinued stereo core RT on the right side. Risk Values: Sharron 5 year model risk: 1.0%. NCI Lifetime model risk: 6.2%. Technique: Method: Targeted. Prior Study Comparison: 05/12/2019 Right Diagnostic Mammogram, [facility]. 09/07/2019 Bilateral Diagnostic Mammogram, [facility]. 04/10/2023 Bilateral MG 3D screening mammo w/cad, [facility]. Findings: The upper inner quadrant of the left breast, the axilla of the left breast and the retroareolar of the left breast were scanned. Ultrasound of the left breast from 9-12 o'clock was performed additional evaluation of the axilla and nipple. There is a superficial 0.5 x 1.0 cm hypoechoic lesion without posterior acoustic features or internal color flow. This is parallel in orientation. This demonstrates benign features. Overall Assessment: Benign, BI-RAD 2 Management: Screening Mammogram of both breasts in 1 year. A clinical breast exam by your physician is recommended on an annual basis and results should be correlated with mammographic findings. This exam should not preclude additional follow-up of suspicious palpable abnormalities. Results were given to the patient verbally at the time of exam. Electronically signed and approved by: Frank Lopez D.O.
== END | disposition home or self-care (01) ==
LOC: RADMAMWWP 13:33
PROVIDERS: ATTEND Family Medicine
DX: R92.8 Other abnormal and inconclusive findings on diagnostic imaging of breast (principal); Z78.0 Asymptomatic menopausal state
CPT/HCPCS: 77065; 76642; G0279; 77061

== ENCOUNTER → 2024-05-11 | Outpatient (CLI) | payer MEDICARE, OTHER ==
--- NOTE | 2024-05-12 11:57 | BD ---
EXAMINATION TYPE: Axial Bone Density DATE OF EXAM: 05/11/2024 CLINICAL HISTORY: 58 years old Female. ICD-10 CODE: Z78.0 Asymptomatic menopausal Height: 65 Weight: 104 FRAX RISK QUESTIONS: Family History (Parent hip fracture): yes Glucocorticoids (More than 3mos): yes (Ex: prednisone, prednisolone, methylprednisolone, dexamethasone, and hydrocortisone). Secondary Osteoporosis: yes 3. Menopause before 45: yes Current Tobacco Use: yes RISK FACTORS HISTORY OF: injections into lumbar on only, no surgery, closed head injury, memory reflects this. MEDICATIONS: vitamins, d and calcium included EXAM MEASUREMENTS: Bone mineral densitometry was performed using the [employer] System. Bone mineral density as measured about the Lumbar spine is: ----- L1-L4(G/cm2): 1.153 T Score Values are as follows: ----- L1: -0.8 ----- L2: -0.8 ----- L3: 0.0 ----- L4: 0.3 ----- L1-L4: -0.2 Z Score Values are as follows: ----- L1: 0.8 ----- L2: 0.8 ----- L3: 1.6 ----- L4: 2.0 ----- L1-L4: 1.4 Bone mineral density is her first bone density study, baseline. Bone mineral density about the R hip (g/cm2): 0.742 Bone mineral density about the L hip (g/cm2): 0.756 T Score values are as follows: -----R Neck: -2.1 -----L Neck: -2.0 -----R Total: -2.2 -----L Total: -1.8 Z Score values are as follows: -----R Neck: -0.6 -----L Neck: -0.5 -----R Total: -1.0 -----L Total: -0.5 Bone mineral density is a baseline study today. FRAX%s: The graph provided illustrates a 23.0% chance for a major osteoporotic fx and a 4.0% chance f or the hips probability for fx in 10 years time. IMPRESSION: Osteopenia (T Score between -2.5 and -1). There is slightly increased risk of fracture and the patient may be considered for treatment. Re-Screen 2-5 years. NOTE: T-SCORE=SD OF THE YOUNG ADULT MEAN.
--- NOTE | 2024-05-13 10:11 | MM ---
Reason for Exam: Screening (asymptomatic). Last mammogram was performed 1 year(s) and 1 month(s) ago. Patient History: Menarche at age 17. First Full-Term at age 18. Hysterectomy at age 38. Postmenopausal. 09/28/2018, Benign Core Biopsy on the right side. 03/04/2018, MG discontinued stereo core RT on the right side. Risk Values: Sharron 5 year model risk: 1.0%. NCI Lifetime model risk: 6.0%. Prior Study Comparison: 09/07/2019 Bilateral Diagnostic Mammogram, [facility]. 04/10/2023 Bilateral MG 3D screening mammo w/cad, [facility]. 04/23/2023 Left MG 3D work up w/cad , [facility]. Tissue Density: The breasts are heterogeneously dense, which may obscure small masses. Findings: Analyzed By CAD. There is no suspicious group of microcalcifications or new suspicious mass in either breast. Overall Assessment: Benign, BI-RAD 2 Management: Screening Mammogram of both breasts in 1 year. . Patient should continue monthly self-breast exams. A clinical breast exam by your physician is recommended on an annual basis. This exam should not preclude additional follow-up of suspicious palpable abnormalities. Note on Sharron scores and lifetime risk: 1. A Sharron score greater than 3% is considered moderate risk. If this is the case, consider specialist referral to assess eligibility for a risk reducing agent. 2. If overall lifetime risk for the development of breast cancer is 20% or higher, the patient may qualify for future screening with alternating mammogram and breast MRI. Electronically signed and approved by: Primitivo Jean Baptiste M.D. Radiologis
== END | disposition home or self-care (01) ==
LOC: RADMAMWWP 12:21
PROVIDERS: ATTEND Family Medicine
DX: Z12.31 Encounter for screening mammogram for malignant neoplasm of breast (principal); R92.333 Mammographic heterogeneous density, bilateral breasts; M85.89 Other specified disorders of bone density and structure, multiple sites; Z78.0 Asymptomatic menopausal state
CPT/HCPCS: 77063; 77067; 77080

== ENCOUNTER 2024-12-16 12:45 | Outpatient (CLI) | payer MEDICARE, OTHER ==
[~2024-12-16 12:45] MED LIST changes: -DEXAMETHASONE SOD PHOSPHATE 10 MG/ML 1 ML VIAL IV ONE; -HEPARIN SODIUM,PORCINE 5,000 UNIT/ML 1 ML VIAL SQ ONE; -HYDROmorphone 1 MG/ML 1 ML SYRINGE IVP PRN; -LIDOCAINE 1% 20 ML VIAL (10MG/ML) FOR IV START INTRADERMA PRN; -MIDAZOLAM 2 MG/2 ML VIAL IV PRN; -ONDANSETRON 4 MG/2 ML VIAL IVP ONE; -Pre Op ABX Message 1 EACH MISC MISCELLANE ONE; +SODIUM CHLORIDE 0.9% 250 ML in EMPTY BAG 1 BAG IV PRN; -fentaNYL (PF) 50 MCG/ML 2 ML AMP IV PRN
[2024-12-16 13:17] VITALS: BP 121/76; PULSE 69; RESP 16; TEMP 97.1
[2024-12-16] MEDS: SODIUM CHLORIDE 0.9% 500 ML 500 ML in EMPTY BAG 1 BAG IV PRN (13:18)
[2024-12-16] MEDS: ZOLEDRONIC ACID 5 MG in SODIUM CHLORIDE 0.9% 100 ML IV NR (13:35)
== END 2024-12-30 10:14 | disposition home or self-care (01) ==
LOC: PROCWHC3 12:45
PROVIDERS: ATTEND Family Medicine
DX: M85.80 Other specified disorders of bone density and structure, unspecified site (principal)
CPT/HCPCS: 96365; J3489

== ENCOUNTER → 2025-01-25 | Outpatient (CLI) | payer MEDICARE, OTHER ==
--- NOTE | 2025-01-25 15:11 | CTL ---
EXAMINATION TYPE: CT Low Dose Lung DATE OF EXAM ORDERED: 01/25/2025 COMPARISON: None CLINICAL INDICATION: Female, 59 years old with history of Z87.891 hx tobacco use; PHH, Screening for maligant neoplasm of respiratory tract, Lung cancer screening, History of Smoking/tobacco use. TECHNIQUE: Low dose computed tomography scan was performed through the chest at 1 mm thick sections a nd reconstructed images in multiple planes at 1 mm and [address] DLP: [address] CTDI: 1.22 mGy Automated exposure control for dose reduction was used. CT DIAGNOSTIC QUALITY: Satisfactory EXAMINATION TYPE: CT Low Dose Lung DATE OF EXAM ORDERED: 01/25/2025 CLINICAL INDICATION: Female, 59 years old with history of Z87.891 hx tobacco use, history of tobacco use, Lung cancer screening CT DLP: [address] CTDI: 1.22 mGy Automated exposure control for dose reduction was used. Comparison: None TECHNIQUE: Low dose computed tomography scan was performed through the chest at 1 mm thick sections a nd reconstructed images in multiple planes at 1 mm and [address] DIAGNOSTIC QUALITY: Satisfactory FINDINGS: There are 2 or 3 scattered micronodules but no suspicious lung mass or nodule. There is no airspace consolidation or abnormal interstitial density. There is no mediastinal, hilar or axillary adenopathy. There is no pleural effusion, pleural thickening or pneumothorax. There are mild compression fractures thoracolumbar junction. Limited scans the upper abdomen reveals no gross abnormality IMPRESSION: 1. Lung rads Category 2 benign.. Continue routine screening at yearly intervals. 2. No acute cardiopulmonary disease. 3. Mild compression fractures at the thoracolumbar junction [facility], , 01/25/2025 3:08 PM
== END | disposition home or self-care (01) ==
LOC: RADCTMAIN 12:36
PROVIDERS: ATTEND Family Medicine
DX: Z12.2 Encounter for screening for malignant neoplasm of respiratory organs (principal); Z87.891 Personal history of nicotine dependence; S22.000A Wedge compression fracture of unspecified thoracic vertebra, initial encounter for closed fracture
CPT/HCPCS: 71271